=== PATIENT | male | born 1945 | race Caucasian/White ===

== ENCOUNTER 2020-03-31 07:28 | Outpatient (CLI) | payer MEDICARE, SELFPAY ==
[2020-03-31 07:38] LABS: Basophils Absolute Auto 0.01 K/mm3 (0.00-0.10); Basophils Percent Auto 0.2 % (0.0-1.0); Eosinophils Absolute Auto 0.27 K/mm3 (0.02-0.50); Eosinophils Percent Auto 4.3 % (1.0-6.0); Hematocrit 46.6 % (37.0-46.0); Hemoglobin 16.1 g/dL (12.4-15.3); Immature Granulocyte Absolute 0.02 K/mm3 (0.00-0.00); Immature Granulocyte Percent A 0.3 % (0.0-0.0); Lymphocytes Absolute Auto 2.08 K/mm3 (1.10-4.50); Lymphocytes Percent Auto 33.2 % (18.0-42.0); Mean Corpuscular HGB Conc 34.5 g/dL (32.0-36.0); Mean Corpuscular Hemoglobin 36.5 pg (27.0-31.0); Mean Corpuscular Volume 105.7 fL (78.0-102.0); Mean Platelet Volume 9.8 fl (8.7-11.0); Monocytes Absolute Auto 0.68 K/mm3 (0.10-0.90); Monocytes Percent Auto 10.8 % (2.0-11.0); Neutrophils Absolute Auto 3.2 K/mm3 (1.7-7.2); Neutrophils Percent Auto 51.2 % (50.0-70.0); Platelet Count Result 175 K/mm3 (150-420); Red Blood Count 4.41 M/mm3 (4.70-6.10); Red Cell Distribution Width 12.6 % (11.6-14.4); White Blood Count 6.3 K/mm3 (4.8-10.8)
[2020-03-31 07:39] LABS: Add Urine Microscopic? NO; Appearance Urine Clear (Clear); Bilirubin Urine Negative (Negative); Blood Urine Negative (Negative); Color Urine Yellow (Yellow); Glucose Urine UA Negative (Negative); Ketones Urine Negative (Negative); Leukocyte Esterase Ur Negative (Negative); Nitrate Urine Negative (Negative); Protein Urine Negative (Negative); Specific Grav Ur 1.025 (1.010-1.020); Urobilinogen Urine 0.2 mg/dL (0.2-1.0); pH Urine 5.5 (5.0-8.0)
[2020-03-31 07:48] LABS: Hemoglobin A1C 5.2 % (<5.7)
[2020-03-31 09:28] LABS: Alanine Aminotransferase 43 U/L (16-63); Albumin Level 3.4 g/dL (3.4-5.0); Alkaline Phosphatase 57 U/L (46-116); Anion Gap 10.8 mmol/L (7-16); Aspartate Amino Transferase 31 U/L (15-37); Bilirubin,Total 0.6 mg/dL (0.00-1.00); Blood Urea Nitrogen 12 mg/dL (7-18); Calcium 8.7 mg/dL (8.5-10.1); Carbon Dioxide 29 mmol/L (21-32); Chloride 105 mmol/L (98-108); Cholesterol 152 mg/dL (0-200); Estimated Glomerular Filt Rate > 60; Free T3 2.46 pg/mL (2.18-3.98); Free T4 Free Thyroxine 0.87 ng/dL (0.76-1.46); Glucose 102 mg/dL (70-99); HDL Direct 59 mg/dL (40-60); LDL Cholesterol Calculated 85 mg/dL (<130); Magnesium 2.1 mg/dL (1.8-2.4); Osmolality Calculated 289 mOsm/kg (285-295); Potassium 4.8 mmol/L (3.5-5.1); Prostate Specific Antigen 0.4 ng/mL (< OR = 4.0); Sodium 140 mmol/L (136-145); Thyroid Stimulating Hormone 1.41 uIU/mL (0.36-3.74); Total Protein 6.5 g/dL (6.4-8.2); Triglycerides 40 mg/dL (0-150); Vitamin B12 626 pg/mL (193-986)
== END 2020-03-31 07:29 | disposition home or self-care (01) ==
PROVIDERS: PCP Internal Medicine; Visit Provider Internal Medicine
DX: E53.8 Deficiency of other specified B group vitamins (principal); R73.01 Impaired fasting glucose; D75.1 Secondary polycythemia; I10 Essential (primary) hypertension; I49.3 Ventricular premature depolarization; Z12.5 Encounter for screening for malignant neoplasm of prostate
CPT/HCPCS: 36415; 80053; 80061; 81003; 82607; 83036; 83735; 84153; 84439; 84443; 84481; 85025; G0103

== ENCOUNTER 2020-06-09 08:06 | Outpatient (CLI) | payer MEDICARE, SELFPAY ==
[2020-06-10 18:02] LABS: SARS-CoV-2 RNA PCR Negative
== END 2020-06-09 08:07 | disposition home or self-care (01) ==
LOC: CHSLAB 08:08
PROVIDERS: PCP Internal Medicine; Visit Provider Internal Medicine
DX: Z20.828 Contact with and (suspected) exposure to other viral communicable diseases (principal)
CPT/HCPCS: 87635; C9803; U0003

== ENCOUNTER 2020-10-03 07:26 | Outpatient (CLI) | payer MEDICARE, SELFPAY ==
[2020-10-03 07:34] LABS: Basophils Absolute Auto 0.04 K/mm3 (0.00-0.10); Basophils Percent Auto 0.6 % (0.0-1.0); Eosinophils Absolute Auto 0.33 K/mm3 (0.02-0.50); Hematocrit 47.4 % (37.0-46.0); Hemoglobin 15.8 g/dL (12.4-15.3); Immature Granulocyte Absolute 0.01 K/mm3 (0.00-0.00); Immature Granulocyte Percent A 0.2 % (0.0-0.0); Lymphocytes Absolute Auto 2.47 K/mm3 (1.10-4.50); Lymphocytes Percent Auto 37.3 % (18.0-42.0); Mean Corpuscular HGB Conc 33.3 g/dL (32.0-36.0); Mean Corpuscular Hemoglobin 35.6 pg (27.0-31.0); Mean Corpuscular Volume 106.8 fL (78.0-102.0); Mean Platelet Volume 9.8 fl (8.7-11.0); Monocytes Absolute Auto 0.66 K/mm3 (0.10-0.90); Neutrophils Absolute Auto 3.1 K/mm3 (1.7-7.2); Neutrophils Percent Auto 46.9 % (50.0-70.0); Platelet Count Result 191 K/mm3 (150-420); Red Blood Count 4.44 M/mm3 (4.70-6.10); Red Cell Distribution Width 12.1 % (11.6-14.4); White Blood Count 6.6 K/mm3 (4.8-10.8)
[2020-10-03 07:38] LABS: Add Urine Microscopic? NO; Appearance Urine Clear (Clear); Bilirubin Urine Negative (Negative); Blood Urine Negative (Negative); Color Urine Yellow (Yellow); Glucose Urine UA Negative (Negative); Ketones Urine Negative (Negative); Leukocyte Esterase Ur Negative (Negative); Nitrate Urine Negative (Negative); Protein Urine Negative (Negative); Specific Grav Ur 1.025 (1.010-1.020); Urobilinogen Urine 0.2 mg/dL (0.2-1.0); pH Urine 5.5 (5.0-8.0)
[2020-10-03 07:48] LABS: Hemoglobin A1C 5.2 % (<5.7)
[2020-10-03 09:13] LABS: Alanine Aminotransferase 50 U/L (16-63); Albumin Level 3.6 g/dL (3.4-5.0); Alkaline Phosphatase 53 U/L (46-116); Anion Gap 6 mmol/L (8-16); Aspartate Amino Transferase 25 U/L (15-37); Bilirubin,Total 0.6 mg/dL (0.00-1.00); Blood Urea Nitrogen 12 mg/dL (7-18); Calcium 8.8 mg/dL (8.5-10.1); Carbon Dioxide 30 mmol/L (21-32); Chloride 104 mmol/L (98-108); Cholesterol 147 mg/dL (0-200); Creatine Kinase 47 U/L (39-308); Estimated Glomerular Filt Rate 60; Ferritin 458 ng/mL (26-388); Free T3 2.44 pg/mL (2.18-3.98); Free T4 Free Thyroxine 0.88 ng/dL (0.76-1.46); Glucose 100 mg/dL (70-99); HDL Direct 55 mg/dL (40-60); Iron 134 ug/dL (65-175); LDL Cholesterol Calculated 80 mg/dL (<130); Osmolality Calculated 289 mOsm/kg (285-295); Percent Iron Saturation 53 % (12-57); Potassium 5.1 mmol/L (3.5-5.1); Sodium 140 mmol/L (136-145); Thyroid Stimulating Hormone 1.32 uIU/mL (0.36-3.74); Total Protein 6.7 g/dL (6.4-8.2); Triglycerides 60 mg/dL (0-150); Vitamin B12 638 pg/mL (193-986)
== END 2020-10-03 07:27 | disposition home or self-care (01) ==
LOC: CHSLAB 07:27
PROVIDERS: PCP Internal Medicine; Visit Provider Internal Medicine
DX: E53.8 Deficiency of other specified B group vitamins (principal); I10 Essential (primary) hypertension; E78.2 Mixed hyperlipidemia; R73.01 Impaired fasting glucose; D75.1 Secondary polycythemia; I49.3 Ventricular premature depolarization
CPT/HCPCS: 36415; 80053; 80061; 81003; 82550; 82607; 82728; 83036; 83540; 83550; 84439; 84443; 84481; 85025

== ENCOUNTER 2020-10-19 09:48 | Outpatient (CLI) | payer MEDICARE, SELFPAY ==
[2020-10-19 10:49] LABS: SARS-CoV-2 Ag Negative (Negative)
[2020-10-20 01:27] LABS: SARS-CoV-2 RNA PCR Negative
== END 2020-10-19 09:49 | disposition home or self-care (01) ==
LOC: CHSLAB 09:50
PROVIDERS: PCP Internal Medicine; Visit Provider Internal Medicine
DX: Z20.822 Contact with and (suspected) exposure to COVID-19 (principal)
CPT/HCPCS: 87426; C9803; U0003; U0005

== ENCOUNTER 2020-11-13 09:17 | Outpatient (CLI) | payer MEDICARE, SELFPAY | END 2020-11-13 09:18 | disposition home or self-care (01) | LOC: CHSCARD 09:18 | PROVIDERS: PCP Internal Medicine; Visit Provider Internal Medicine Cardiovascular Disease | DX: I49.3 Ventricular premature depolarization (principal) | CPT/HCPCS: 93225; 93226 ==

== ENCOUNTER 2021-09-04 09:00 | Outpatient (CLI) | payer MEDICARE, SELFPAY | END 2021-09-04 09:01 | disposition home or self-care (01) | LOC: CHSOUTPT 09:22 | PROVIDERS: PCP Internal Medicine; Visit Provider Specialist | DX: C44.329 Squamous cell carcinoma of skin of other parts of face (principal) | CPT/HCPCS: 88305 ==

== ENCOUNTER 2021-10-09 07:24 | Outpatient (CLI) | payer MEDICARE, SELFPAY ==
[2021-10-09 07:44] LABS: Basophils Absolute Auto 0.04 K/mm3 (0.00-0.10); Basophils Percent Auto 0.6 % (0.0-1.0); Eosinophils Absolute Auto 0.26 K/mm3 (0.02-0.50); Eosinophils Percent Auto 4.1 % (1.0-6.0); Hematocrit 48.1 % (37.0-46.0); Immature Granulocyte Absolute 0.03 K/mm3 (0.00-0.00); Immature Granulocyte Percent A 0.5 % (0.0-0.0); Lymphocytes Absolute Auto 2.02 K/mm3 (1.10-4.50); Lymphocytes Percent Auto 31.6 % (18.0-42.0); Mean Corpuscular HGB Conc 33.3 g/dL (32.0-36.0); Mean Corpuscular Hemoglobin 36.6 pg (27.0-31.0); Mean Corpuscular Volume 110.1 fL (78.0-102.0); Mean Platelet Volume 10.4 fl (8.7-11.0); Monocytes Absolute Auto 0.78 K/mm3 (0.10-0.90); Monocytes Percent Auto 12.2 % (2.0-11.0); Neutrophils Absolute Auto 3.3 K/mm3 (1.7-7.2); Platelet Count Result 187 K/mm3 (150-420); Red Blood Count 4.37 M/mm3 (4.70-6.10); Red Cell Distribution Width 12.1 % (11.6-14.4); White Blood Count 6.4 K/mm3 (4.8-10.8)
[2021-10-09 07:46] LABS: Add Urine Microscopic? NO; Appearance Urine Clear (Clear); Bilirubin Urine Negative (Negative); Blood Urine Negative (Negative); Color Urine Yellow (Yellow); Glucose Urine UA Negative (Negative); Ketones Urine Negative (Negative); Leukocyte Esterase Ur Negative (Negative); Nitrate Urine Negative (Negative); Protein Urine Negative (Negative); Urobilinogen Urine 0.2 mg/dL (0.2-1.0); pH Urine 5.5 (5.0-8.0)
[2021-10-09 08:12] LABS: Hemoglobin A1C 5.3 % (<5.7)
[2021-10-09 09:13] LABS: Alanine Aminotransferase 56 U/L (16-63); Albumin Level 3.5 g/dL (3.4-5.0); Alkaline Phosphatase 61 U/L (46-116); Anion Gap 6 mmol/L (8-16); Aspartate Amino Transferase 50 U/L (15-37); Bilirubin,Total 0.6 mg/dL (0.00-1.00); Blood Urea Nitrogen 10 mg/dL (7-18); Calcium 8.7 mg/dL (8.5-10.1); Carbon Dioxide 31 mmol/L (21-32); Chloride 104 mmol/L (98-108); Cholesterol 146 mg/dL (0-200); Creatine Kinase 49 U/L (39-308); Estimated Glomerular Filt Rate > 60; Ferritin 556 ng/mL (26-388); Glucose 106 mg/dL (70-99); HDL Direct 63 mg/dL (40-60); Iron 125 ug/dL (65-175); LDL Cholesterol Calculated 74 mg/dL (<130); Osmolality Calculated 291 mOsm/kg (285-295); Percent Iron Saturation 51 % (12-57); Prostate Specific Antigen 0.4 ng/mL (< OR = 4.0); Sodium 141 mmol/L (136-145); Total Protein 6.7 g/dL (6.4-8.2); Triglycerides 43 mg/dL (0-150)
== END 2021-10-09 07:25 | disposition home or self-care (01) ==
LOC: CHSLAB 07:26
PROVIDERS: PCP Internal Medicine; Visit Provider Internal Medicine
DX: E78.2 Mixed hyperlipidemia (principal); I10 Essential (primary) hypertension; R73.01 Impaired fasting glucose; D75.1 Secondary polycythemia; Z12.5 Encounter for screening for malignant neoplasm of prostate; D64.9 Anemia, unspecified
CPT/HCPCS: 36415; 80053; 80061; 81003; 82550; 82728; 83036; 83540; 83550; 84153; 85025; G0103

== ENCOUNTER 2021-10-22 09:26 | Outpatient (CLI) | payer MEDICARE, SELFPAY | END 2021-10-22 09:27 | disposition home or self-care (01) | LOC: CHSLAB 09:28 | PROVIDERS: PCP Internal Medicine; Visit Provider Internal Medicine | DX: D75.1 Secondary polycythemia (principal); R94.5 Abnormal results of liver function studies; E83.10 Disorder of iron metabolism, unspecified | CPT/HCPCS: 36415; 81256 ==

== ENCOUNTER 2022-03-05 10:30 | Outpatient (CLI) | payer MEDICARE, SELFPAY ==
--- NOTE | ~2022-03-05 | CT_ITS ---
EXAMINATION: CT abdomen pelvis wo con DATE: 03/05/2022 15:03 INDICATION: Diarrhea. Left lower quadrant tenderness. TECHNIQUE: Computed tomography (CT) of the abdomen and pelvis was performed without intravenous contr ast. The dose-length product was 1136.90 mGy-cm. Automated exposure control and iterative reconstruct ion technique were employed. COMPARISON: CT dated 03/15/2008. FINDINGS: There are reticulonodular densities in the lung bases bilaterally. No pneumothorax. No sign ificant pleural or pericardial effusion. There is an irregular liver surface, suspicious for cirrhosi s. Heart size normal. Spleen is normal. There are fat-containing bilateral inguinal hernias. Colonic diverticulosis without evidence for diverticulitis. Normal appendix. There are bilateral fat-containi ng inguinal hernias. No lymphadenopathy. Subtle mesenteric fatty infiltration, nonspecific. There are a few shotty mesenteric lymph nodes. Mild osteoarthritis of the hips. Severe lumbar spondylosis with grade 1 spondylolisthesis at L5-S1 secondary to spondylolysis. There is scoliosis. Bladder is decomp ressed limiting evaluation for wall thickening. No evidence for bowel obstruction. Small fat-containi ng umbilical hernia. IMPRESSION: 1. Reticulonodular densities of the lung bases bilaterally, suspicious for infectious/inflammatory pr ocess. 2: Irregular liver surface, suspicious for cirrhosis. 3: Fat-containing bilateral inguinal and umbilical hernias. Reviewed, dictated and finalized at location B. IMPRESSION: 1. Reticulonodular densities of the lung bases bilaterally, suspicious for infe ctious/inflammatory process. 2: Irregular liver surface, suspicious for cirrhosis. 3: Fat-containing bilateral inguinal and umbilical hernias.
[2022-03-05 14:06] LABS: Basophils Absolute Auto 0.02 K/mm3 (0.00-0.10); Basophils Percent Auto 0.3 % (0.0-1.0); Eosinophils Absolute Auto 0.18 K/mm3 (0.02-0.50); Eosinophils Percent Auto 2.7 % (1.0-6.0); Hematocrit 45.1 % (37.0-46.0); Hemoglobin 15.4 g/dL (12.4-15.3); Immature Granulocyte Absolute 0.02 K/mm3 (0.00-0.00); Immature Granulocyte Percent A 0.3 % (0.0-0.0); Immature Reticulocyte Fraction 9.6 % (2.0-16.52); Lymphocytes Absolute Auto 2.17 K/mm3 (1.10-4.50); Lymphocytes Percent Auto 32.1 % (18.0-42.0); Mean Corpuscular HGB Conc 34.1 g/dL (32.0-36.0); Mean Corpuscular Hemoglobin 36.7 pg (27.0-31.0); Mean Corpuscular Volume 107.4 fL (78.0-102.0); Mean Platelet Volume 10.4 fl (8.7-11.0); Monocytes Absolute Auto 0.71 K/mm3 (0.10-0.90); Monocytes Percent Auto 10.5 % (2.0-11.0); Neutrophils Absolute Auto 3.7 K/mm3 (1.7-7.2); Neutrophils Percent Auto 54.1 % (50.0-70.0); Platelet Count Result 186 K/mm3 (150-420); Red Cell Distribution Width 12.4 % (11.6-14.4); Reticulocyte Percent 1.59 % (0.50-1.50); Reticulocytes Absolute 0.07 M/mm3 (0.02-0.1); White Blood Count 6.8 K/mm3 (4.8-10.8)
[2022-03-05 14:21] LABS: Estimated Glomerular Filt Rate > 60
[2022-03-05 14:37] LABS: Alanine Aminotransferase 43 U/L (16-63); Albumin Level 3.3 g/dL (3.4-5.0); Alkaline Phosphatase 54 U/L (46-116); Anion Gap 3 mmol/L (8-16); Aspartate Amino Transferase 34 U/L (15-37); Bilirubin,Total 0.8 mg/dL (0.00-1.00); Blood Urea Nitrogen 8 mg/dL (7-18); Calcium 8.6 mg/dL (8.5-10.1); Carbon Dioxide 32 mmol/L (21-32); Chloride 103 mmol/L (98-108); Ferritin 485 ng/mL (26-388); Glucose 99 mg/dL (70-99); Iron 151 ug/dL (65-175); Osmolality Calculated 284 mOsm/kg (285-295); Sodium 138 mmol/L (136-145); Total Protein 6.7 g/dL (6.4-8.2)
[2022-03-05 14:50] LABS: Potassium 5.2 mmol/L (3.5-5.1)
[2022-03-05 15:08] LABS: Erythrocyte Sedimentation Rate 12 mm/hr (0-20)
[2022-03-05 18:35] LABS: Amylase 57 U/L (25-115); GGT 74 U/L (15-85); Lipase 42 U/L (73-393)
== END 2022-03-05 10:31 | disposition home or self-care (01) ==
PROVIDERS: PCP Internal Medicine; Visit Provider Specialist
DX: R19.7 Diarrhea, unspecified (principal); R10.32 Left lower quadrant pain; D64.9 Anemia, unspecified; K76.9 Liver disease, unspecified
CPT/HCPCS: 36415; 74176; 80053; 82150; 82728; 82977; 83540; 83690; 85025; 85046; 85652; 88305

== ENCOUNTER 2022-03-06 17:08 | Outpatient (CLI) | payer MEDICARE, SELFPAY ==
[2022-03-06 17:40] LABS: Partial Thromboplastin Time 25.4 SEC (23.90-30.70); Prothrombin Time 10.7 Seconds (9.50-12.10)
[2022-03-06 18:03] LABS: Occult Blood Negative (Negative)
[2022-03-09 21:12] LABS: Fecal Fat, Ql Normal (Normal)
== END 2022-03-06 17:09 | disposition home or self-care (01) ==
LOC: CHSLAB 17:10
PROVIDERS: PCP Internal Medicine; Visit Provider Internal Medicine
DX: D64.9 Anemia, unspecified (principal); K76.9 Liver disease, unspecified
CPT/HCPCS: 36415; 82272; 82705; 85610; 85730; 87045; 87177; 87209; 87324; 87427

== ENCOUNTER 2022-03-25 14:46 | Outpatient (CLI) | payer MEDICARE, SELFPAY ==
[2022-03-25 15:11] LABS: Hematocrit 44.3 % (37.0-46.0); Hemoglobin 15.4 g/dL (12.4-15.3); Mean Corpuscular HGB Conc 34.8 g/dL (32.0-36.0); Mean Corpuscular Hemoglobin 37.2 pg (27.0-31.0); Mean Platelet Volume 10.3 fl (8.7-11.0); Platelet Count Result 196 K/mm3 (150-420); Red Blood Count 4.14 M/mm3 (4.70-6.10); Red Cell Distribution Width 12.3 % (11.6-14.4); White Blood Count 7.1 K/mm3 (4.8-10.8)
[2022-03-25 15:47] LABS: Alanine Aminotransferase 35 U/L (16-63); Albumin Level 3.5 g/dL (3.4-5.0); Alkaline Phosphatase 58 U/L (46-116); Anion Gap 8 mmol/L (8-16); Aspartate Amino Transferase 30 U/L (15-37); Bilirubin,Total 0.9 mg/dL (0.00-1.00); Blood Urea Nitrogen 9 mg/dL (7-18); Calcium 8.5 mg/dL (8.5-10.1); Carbon Dioxide 27 mmol/L (21-32); Chloride 104 mmol/L (98-108); Estimated Glomerular Filt Rate > 60; Glucose 87 mg/dL (70-99); Osmolality Calculated 285 mOsm/kg (285-295); Potassium 4.2 mmol/L (3.5-5.1); Sodium 139 mmol/L (136-145); Total Protein 6.5 g/dL (6.4-8.2)
[2022-03-25 16:38] LABS: CRP < 0.2 mg/dL (0.0-0.9)
[2022-03-28 22:13] LABS: Immunoglobulin A 185 mg/dL (70-320)
[2022-03-31 14:16] LABS: Tissue Transglutaminase IgA Ab <1.0 U/mL (<15.0)
== END 2022-03-25 14:47 | disposition home or self-care (01) ==
LOC: CHSLAB 14:49
PROVIDERS: PCP Internal Medicine
DX: K52.9 Noninfective gastroenteritis and colitis, unspecified (principal)
CPT/HCPCS: 36415; 80053; 82784; 83516; 85027; 86140

== ENCOUNTER 2022-03-26 07:41 | Outpatient (CLI) | payer MEDICARE, SELFPAY | END 2022-03-26 07:42 | disposition home or self-care (01) | LOC: CHSLAB 07:46 | PROVIDERS: PCP Internal Medicine | DX: K52.9 Noninfective gastroenteritis and colitis, unspecified (principal) | CPT/HCPCS: 87045; 87177; 87209; 87324; 87427 ==

== ENCOUNTER 2022-03-28 07:51 | Outpatient (CLI) | payer MEDICARE, SELFPAY ==
--- NOTE | ~2022-03-28 | US_ITS ---
US abdomen complete DATE: 03/28/2022 08:32 INDICATION: Chronic diarrhea TECHNIQUE: Real-time imaging of the abdomen, Doppler analysis COMPARISON: 03/05/[address] abdomen pelvis FINDINGS: There is somewhat coarsened echotexture which in combination with surface nodularity on CT examination may indicate cirrhosis. No discrete hepatic mass lesion is detected. There is normal hepa topedal portal venous flow direction. No gallstones or gallbladder wall thickening are detected. Negative sonographic Brooks's sign. The common bile duct measures 3.9 mm, normal. The pancreas is largely obscured by bowel gas. Right kidney measures approximately 11 cm length, left kidney 12 cm length. No renal mass lesion or h ydronephrosis is detected. Splenic size is within normal limits. Normal caliber of the abdominal aorta. The inferior vena cava is unremarkable. IMPRESSION: Coarsened hepatic echotexture, suggestive of cirrhosis Negative gallbladder Reviewed, dictated and finalized at Location A. Reviewed, dictated and finalized at location B.
== END 2022-03-28 07:52 | disposition home or self-care (01) ==
PROVIDERS: PCP Internal Medicine
DX: K52.9 Noninfective gastroenteritis and colitis, unspecified (principal)
CPT/HCPCS: 76700

== ENCOUNTER 2022-07-01 15:38 | Outpatient (CLI) | payer MEDICARE, SELFPAY ==
[2022-07-01 15:59] LABS: Hemoglobin 15.5 g/dL (12.4-15.3); Mean Corpuscular HGB Conc 34.4 g/dL (32.0-36.0); Mean Corpuscular Hemoglobin 37.2 pg (27.0-31.0); Mean Corpuscular Volume 107.9 fL (78.0-102.0); Mean Platelet Volume 9.1 fl (8.7-11.0); Platelet Count Result 166 K/mm3 (150-420); Red Blood Count 4.17 M/mm3 (4.70-6.10); White Blood Count 8.1 K/mm3 (4.8-10.8)
[2022-07-01 16:18] LABS: Alanine Aminotransferase 40 U/L (16-63); Albumin Level 3.4 g/dL (3.4-5.0); Alkaline Phosphatase 50 U/L (46-116); Anion Gap 8 mmol/L (8-16); Aspartate Amino Transferase 25 U/L (15-37); Bilirubin,Total 0.7 mg/dL (0.00-1.00); Blood Urea Nitrogen 9 mg/dL (7-18); Calcium 8.5 mg/dL (8.5-10.1); Carbon Dioxide 29 mmol/L (21-32); Chloride 105 mmol/L (98-108); Estimated Glomerular Filt Rate > 60; Glucose 84 mg/dL (70-99); Osmolality Calculated 291 mOsm/kg (285-295); Potassium 4.4 mmol/L (3.5-5.1); Sodium 142 mmol/L (136-145); Total Protein 6.7 g/dL (6.4-8.2)
[2022-07-03 11:50] LABS: Immunoglobulin G, Serum 1047 mg/dL (600-1540); Immunoglobulin G1 582 mg/dL (382-929); Immunoglobulin G2 344 mg/dL (241-700); Immunoglobulin G3 42 mg/dL (22-178); Immunoglobulin G4 25.4 mg/dL (4.0-86.0)
[2022-07-03 12:26] LABS: Actin Antibody (IgG) <20 U (<20)
[2022-07-03 22:33] LABS: Mitochondrial (M2) Ab (IgG) <=20.0 U (<=20.0)
[2022-07-04 03:24] LABS: Hepatitis B Core Ab Total Nonreactive (Nonreactive)
[2022-07-04 11:19] LABS: Hepatitis B Surface Antibody Nonreactive (Nonreactive); Hepatitis B Surface Antigen Nonreactive (Nonreactive); Hepatitis C Signal to Cutoff 0.02 ratio (<1.00); Hepatitis C Virus Antibody Nonreactive (Nonreactive)
[2022-07-08 00:18] LABS: ALT 30 U/L (9-46); Alpha-2-Macroglobulin 277 mg/dL (106-279); Apolipoprotein A1 155 mg/dL (94-176); Fibrosis Score 0.67; Fibrosis Stage F3; GGT 49 U/L (3-70); Haptoglobin 121 mg/dL (43-212); Necroinflammat Act Grade A0-A1; Total Bilirubin 0.8 mg/dL (0.2-1.2)
== END 2022-07-01 15:39 | disposition home or self-care (01) ==
PROVIDERS: PCP Internal Medicine; Visit Provider Internal Medicine
DX: K71.7 Toxic liver disease with fibrosis and cirrhosis of liver (principal); N18.6 End stage renal disease; Z11.59 Encounter for screening for other viral diseases
CPT/HCPCS: 36415; 80053; 81596; 82784; 82787; 83516; 83520; 85027; 86038; 86704; 86706

== ENCOUNTER 2023-02-27 10:54 | Outpatient (CLI) | payer MEDICARE, SELFPAY ==
--- NOTE | ~2023-02-27 | XR_ITS ---
EXAMINATION: XR ribs LT 2V w CXR 2V INDICATION: Cough and rib pain TECHNIQUE: Frontal and lateral views of the chest and 3 views of the left ribs were obtained. COMPARISON: 12/22/2017 FINDINGS: There are airspace opacities of the lower lobes and right middle lobe. No pleural effusion or pneumothorax. The cardiomediastinal silhouette is normal. No displaced rib fracture is identified. There is mild wedging at the left lateral aspect of the T10 vertebral body. Lumbar dextroscoliosis i s noted. IMPRESSION: 1. Airspace opacities of the lower lobes and right middle lobe, consistent with atelectasis versus pn eumonia. 2. No displaced rib fracture identified. Reviewed, dictated and finalized at location L. IMPRESSION: 1. Airspace opacities of the lower lobes and right middle lobe, consistent with atelectasis versus pneumonia. 2. No displaced rib fracture identified.
[2023-02-27 15:13] LABS: Basophils Absolute Auto 0.04 K/mm3 (0.00-0.10); Basophils Percent Auto 0.5 % (0.0-1.0); Eosinophils Absolute Auto 0.16 K/mm3 (0.02-0.50); Eosinophils Percent Auto 1.8 % (1.0-6.0); Hematocrit 46.7 % (37.0-46.0); Hemoglobin 15.3 g/dL (12.4-15.3); Immature Granulocyte Absolute 0.03 K/mm3 (0.00-0.00); Immature Granulocyte Percent A 0.3 % (0.0-0.0); Lymphocytes Absolute Auto 1.86 K/mm3 (1.10-4.50); Lymphocytes Percent Auto 21.5 % (18.0-42.0); Mean Corpuscular HGB Conc 32.8 g/dL (32.0-36.0); Mean Corpuscular Hemoglobin 34.9 pg (27.0-31.0); Mean Corpuscular Volume 106.6 fL (78.0-102.0); Mean Platelet Volume 9.5 fl (8.7-11.0); Monocytes Absolute Auto 0.75 K/mm3 (0.10-0.90); Monocytes Percent Auto 8.7 % (2.0-11.0); Neutrophils Absolute Auto 5.8 K/mm3 (1.7-7.2); Neutrophils Percent Auto 67.2 % (50.0-70.0); Platelet Count Result 215 K/mm3 (150-420); Red Blood Count 4.38 M/mm3 (4.70-6.10); Red Cell Distribution Width 12.4 % (11.6-14.4); White Blood Count 8.7 K/mm3 (4.8-10.8)
[2023-02-27 15:42] LABS: Alanine Aminotransferase 34 U/L (16-63); Albumin Level 3.4 g/dL (3.4-5.0); Alkaline Phosphatase 69 U/L (46-116); Anion Gap 7 mmol/L (8-16); Aspartate Amino Transferase 23 U/L (15-37); Bilirubin,Total 0.7 mg/dL (0.00-1.00); Blood Urea Nitrogen 10 mg/dL (7-18); Calcium 8.8 mg/dL (8.5-10.1); Carbon Dioxide 29 mmol/L (21-32); Chloride 103 mmol/L (98-108); Estimated Glomerular Filt Rate > 60; Glucose 75 mg/dL (70-99); Osmolality Calculated 286 mOsm/kg (285-295); Potassium 4.3 mmol/L (3.5-5.1); Sodium 139 mmol/L (136-145)
== END 2023-02-27 10:55 | disposition home or self-care (01) ==
PROVIDERS: PCP Internal Medicine; Visit Provider Internal Medicine
DX: R05.9 Cough, unspecified (principal); R07.81 Pleurodynia; R91.8 Other nonspecific abnormal finding of lung field
CPT/HCPCS: 36415; 71046; 71100; 80053; 85025; 87040; 87147; 87186

== ENCOUNTER 2023-03-05 10:02 | Outpatient (CLI) | payer MEDICARE, SELFPAY ==
--- NOTE | ~2023-03-05 | XR_ITS ---
Clinical Indication: Pneumonia PA and lateral views of the chest: Comparison: 02/27/2023 Findings: There are persistent hazy bibasilar pulmonary airspace opacities. No pleural effusion or pn eumothorax. Cardiomediastinal silhouette is within normal limits. Bones and soft tissues are unremar kable. Impression: Persistent bibasilar hazy airspace opacities, suspicious for pneumonia versus possibly atelectasis. C orrelate clinically. Reviewed, dictated and finalized at location . Impression: Persistent bibasilar hazy airspace opacities, suspicious for pneumonia versus p ossibly atelectasis. Correlate clinically.
== END 2023-03-05 10:03 | disposition home or self-care (01) ==
LOC: CHSIMG 10:04
PROVIDERS: PCP Internal Medicine; Visit Provider Internal Medicine
DX: J18.9 Pneumonia, unspecified organism (principal); R91.8 Other nonspecific abnormal finding of lung field
CPT/HCPCS: 71046

== ENCOUNTER → 2023-03-21 07:55 | Outpatient (CLI) | payer MEDICARE, SELFPAY ==
--- NOTE | ~2023-03-21 | MR_ITS ---
MRI of the thoracic spine Clinical History: Back pain Technique: Axial T2-weighted and gradient images, and sagittal T1-weighted, T2-weighted, and STIR jane ges were acquired. Findings: There is diffuse marrow edema of the T9 vertebral body with probable linear hypointense fra cture line, and associated mild loss of height. There is diffuse, marked T1 hypointense signal throug hout most of the T9 vertebral body. Abnormal signal extends into the left pedicle/lamina. There is minimal chronic loss of height of T3. Remaining osseous structures are intact. Intervertebral disc spaces are relatively well preserved throughout the thoracic spine. No disc bulge or herniation identified in the thoracic spine. No epidural mass or collection. No spinal canal sten osis or cord compression. Paravertebral soft tissues are unremarkable. Impression: Mild compression fracture of T9 with extensive abnormal signal, as detailed above. Imaging findings a re somewhat equivocal, but I would favor a benign osteoporotic fracture over malignant fracture, crain oren the latter is difficult to completely exclude. Consider short-term follow-up exam in several week s to assess for resolution of the abnormal marrow signal. Minimal chronic loss of height of T3. Reviewed, dictated and finalized at location M. Impression: Mild compression fracture of T9 with extensive abnormal signal, as detailed abo ve. Imaging findings are somewhat equivocal, but I would favor a benign osteopo rotic fracture over malignant fracture, however the latter is difficult to comp letely exclude. Consider short-term follow-up exam in several weeks to assess f or resolution of the abnormal marrow signal. Minimal chronic loss of height of T3.
== END ==
PROVIDERS: PCP Internal Medicine; Visit Provider Pain Medicine Pain Medicine
DX: M80.08XA Age-related osteoporosis with current pathological fracture, vertebra(e), initial encounter for fracture (principal)
CPT/HCPCS: 72146

== ENCOUNTER 2023-03-24 07:40 | Outpatient (CLI) | payer MEDICARE, SELFPAY ==
--- NOTE | 2023-03-24 08:15 | ECHO_ITS ---
Patient Info Name: Christopher Hogue Age: 77 years : 1945 Gender: Male Ht: 68 in Wt: 212 lbs BSA: 2.18 m2 HR: 77 bpm BP: 128 / 85 mmHg Heart Rhythm: Sinus Rhythm Technical Quality: Fair Exam Date: 03/24/2023 8:13 AM Exam Location: [facility] Patient Status: Outpatient Admit Date: 03/24/2023 Staff Ordering Physician: Lianne Dinero MD [employer] Machine Operator: Nia Arzola RDCS Attending Provider: Lianne Dinero MD Referring Physician: Bar WILHELM; Exam Type: CA echo doppler color flow Study Info Indications - CHF Complete two-dimensional, color flow and Doppler transthoracic echocardiogram is performed. Summary 1. Complete two-dimensional, color flow and Doppler transthoracic echocardiogram is performed. 2. Left ventricular chamber dimension is normal. 3. Left ventricular systolic function is normal, estimated at 60-65%. 4. The left ventricular diastolic function is grade I diastolic dysfunction. 5. E/e' 8 is minimally elevated. 6. No pulmonary hypertension, estimated pulmonary arterial systolic pressure is 11 mmHg. 7. There is trace pulmonic regurgitation. Left Ventricle E/e' 8 is minimally elevated. Left ventricular chamber dimension is normal. Left ventricular systolic function is normal, estimated at 60-65%. The left ventricular diastolic function is grade I diastolic dysfunction. Right Ventricle Right ventricular systolic function is normal and with normal TAPSE 2.0 cm. Right ventricular chamber dimension is normal. Left Atria Left atrial chamber dimension is normal. Right Atria Right atrial chamber dimension is normal. Aortic Valve The aortic valve is trileaflet. There is no aortic valve stenosis. There is no aortic valve regurgitation. Pulmonic Valve There is trace pulmonic regurgitation. Mitral Valve There is no mitral valve stenosis. There is no mitral valve regurgitation. Tricuspid Valve There is no tricuspid valve regurgitation. No pulmonary hypertension, estimated pulmonary arterial systolic pressure is 11 mmHg. Pericardium/Pleural There is no pericardial effusion. Inferior Vena Cava Normal inferior vena cava with >50% collapse upon inspiration consistent with normal right atrial pressure, 5 mmHg. Aorta The aortic root size at the sinus of Valsalva is normal. Left Ventricular Outflow Tract Name Value Normal LVOT 2D LVOT Diameter 2.2 cm LVOT Doppler LVOT Peak Velocity 78 cm/s LVOT Peak Gradient 2 mmHg LVOT Mean Gradient 1 mmHg LVOT VTI 18 cm LVOT VTI/AV VTI Ratio 0.9 LVOT Stroke Volume 70 ml Pulmonic Valve Name Value Normal RVOT Doppler RVOT Peak Gradient 1 mmHg PV Doppler PV Peak Velocity 71 cm/s PV P
[2023-03-24 08:21] LABS: Basophils Absolute Auto 0.03 K/mm3 (0.00-0.10); Basophils Percent Auto 0.3 % (0.0-1.0); Eosinophils Absolute Auto 0.14 K/mm3 (0.02-0.50); Eosinophils Percent Auto 1.6 % (1.0-6.0); Hematocrit 45.6 % (37.0-46.0); Hemoglobin 15.3 g/dL (12.4-15.3); Immature Granulocyte Absolute 0.04 K/mm3 (0.00-0.00); Immature Granulocyte Percent A 0.5 % (0.0-0.0); Lymphocytes Absolute Auto 1.86 K/mm3 (1.10-4.50); Lymphocytes Percent Auto 21.3 % (18.0-42.0); Mean Corpuscular HGB Conc 33.6 g/dL (32.0-36.0); Mean Corpuscular Hemoglobin 35.3 pg (27.0-31.0); Mean Corpuscular Volume 105.1 fL (78.0-102.0); Mean Platelet Volume 9.6 fl (8.7-11.0); Monocytes Absolute Auto 0.68 K/mm3 (0.10-0.90); Monocytes Percent Auto 7.8 % (2.0-11.0); Neutrophils Percent Auto 68.5 % (50.0-70.0); Platelet Count Result 215 K/mm3 (150-420); Red Blood Count 4.34 M/mm3 (4.70-6.10); White Blood Count 8.7 K/mm3 (4.8-10.8)
[2023-03-24 08:32] LABS: Hemoglobin A1C 5.4 % (<5.7)
[2023-03-24 08:54] LABS: Alanine Aminotransferase 55 U/L (16-63); Albumin Level 3.4 g/dL (3.4-5.0); Alkaline Phosphatase 97 U/L (46-116); Anion Gap 4 mmol/L (8-16); Aspartate Amino Transferase 40 U/L (15-37); Bilirubin,Total 0.3 mg/dL (0.00-1.00); Blood Urea Nitrogen 11 mg/dL (7-18); Calcium 8.7 mg/dL (8.5-10.1); Carbon Dioxide 30 mmol/L (21-32); Chloride 104 mmol/L (98-108); Cholesterol 150 mg/dL (0-200); Estimated Glomerular Filt Rate > 60; Glucose 112 mg/dL (70-99); HDL Direct 49 mg/dL (40-60); LDL Cholesterol Calculated 92 mg/dL (<130); Osmolality Calculated 286 mOsm/kg (285-295); Potassium 4.7 mmol/L (3.5-5.1); Sodium 138 mmol/L (136-145); Total Protein 6.7 g/dL (6.4-8.2); Triglycerides 43 mg/dL (0-150)
[2023-03-24 10:31] LABS: Appearance Urine Clear (Clear); Bilirubin Urine Negative (Negative); Blood Urine Trace-Intact (Negative); Color Urine Yellow (Yellow); Glucose Urine UA Negative (Negative); Ketones Urine Trace (Negative); Leukocyte Esterase Ur Negative (Negative); Nitrate Urine Negative (Negative); Protein Urine Trace (Negative); Specific Grav Ur 1.025 (1.010-1.020); Urobilinogen Urine 0.2 mg/dL (0.2-1.0); pH Urine 5.5 (5.0-8.0)
[2023-03-24 10:38] LABS: Add Urine Microscopic? YES; Calcium Oxalate Crystals Urine Present /hpf; RBC Urine 0-2 /hpf (0-2); Squamous Epithelial Cell Urine Rare /hpf (Few); WBC Urine None seen /hpf (0-3)
[2023-03-24 10:39] LABS: Bacteria Urine Trace /hpf
== END 2023-03-24 07:41 | disposition home or self-care (01) ==
LOC: CHSIMG 07:43
PROVIDERS: PCP Internal Medicine; Visit Provider Internal Medicine
DX: K76.0 Fatty (change of) liver, not elsewhere classified (principal); E53.8 Deficiency of other specified B group vitamins; K74.60 Unspecified cirrhosis of liver; I10 Essential (primary) hypertension; E78.2 Mixed hyperlipidemia; R73.01 Impaired fasting glucose
CPT/HCPCS: 36415; 80053; 80061; 81001; 83036; 85025; 93306

== ENCOUNTER 2023-04-07 09:14 | Outpatient (RCR) | payer MEDICARE, SELFPAY ==
--- NOTE | 2023-04-07 09:52 | PTOPEVAL1 ---
Assessment and note entered by Jonathan Carbajal Evaluation Information Assessment Status Evaluation Diagnosis vertebral fx, back pain, s/p kyphoplasty Onset 01/27/23 Subjective Information Pt. reports that he has long hx of back pain. He states that he found several fx in his spine after visiting with the doctor. He recalls no specfic injury. He underwent kyphoplasty 03/26/23. He continues to describe pain across the low back. He reports that he continues to have pain with long periods of standing and long periods of sitting. He states that back pain can wake him at night occasionally. He reports that he enjoys caring for his yard, but has been unable to do so, do to pain. He reports that he can currently stand about 15 minutes, but was able to stand much longer several months ago. He reports that he still drives. He is not using an AD. He states that his goal is to return to taking care of his yard. Reported Pain Level Pain Score 4: Self Report Assessment PT Clinical Summary Pt. is a 77 year old male who enters the clinic with weakness and back pain following kyphoplasty. He presents with impaired gait, impaired trunk mobility, impaired strength, impaired flexiblity and functional decline. Continued skilled PT is indicated in order to improve these areas to allow the pt. to be able to complete all IADL's without limitation. Plan of Care Interventions Electrical Stimulation,Manual Therapy,Neuro Re- education,Patient/Caregiver Educati,Therapeutic Activities,Therapeutic Exercise PT Services Indicated Yes Treatment Frequency and 3x/week x 12 visits Duration These treatments will address the objective and functional deficits as defined above. The patient will be advanced safely and appropriately in order for the patient to progress towards his/her prior level of function. Additional exercises will be introduced and as well as a comprehensive home exercise program upon discharge, if needed, ?to ensure carryover of functional gains achieved in the clinic. This treatment plan has been reviewed and agreement upon by the patient.
--- NOTE | 2023-04-07 09:54 | OPREHPOC ---
Outpatient Therapy Plan of Care This is a Multidisciplinary Plan of Care that may contain components documented by all disciplines (PT, OT, and ST.) PT Problem 1 PT Problem #1 Knowledge Deficit PT Goal 1 Goal Pt. will be independent with a HEP addressing strength and endurance Target Visit 3 PT Problem 2 PT Problem #2 Pain PT Goal 1 Goal Pt. will be able to stand for 30-45 minutes with 2 /10 pain reported to complete yard work Target Visit 12 PT Problem 3 PT Problem #3 Impaired Functional Mobil PT Goal 1 Goal Pt. will be able to stand for 30-45 minutes in order to complete yard work Target Visit 12 PT Goal 2 Goal Pt. will improve Oswestry score by 20% or greater indicating overall functional improvement.
--- NOTE | 2023-05-01 09:38 | PTOPPROGNS ---
Assessment and note entered by Loree Cleveland, PT Evaluation Information Assessment Status Progress Diagnosis vertebral fx, back pain, s/p kyphoplasty Onset 01/27/23 Subjective Information Christopher Hogue reports his back is stiff and still feels weak but he has been able to return to most of his previous activities. He still notes difficulty standing more than 15 mins. He was able to mow his lawn earlier this week for the first time and just had back soreness following it. Assessment PT Clinical Summary Christopher Hogue has completed 10 skilled PT visits for weakness and back pain following a kyphoplasty . He is reporting ongoing stiffness in his back as well as weakness. He notes difficulty with standing longer than 15 minutes. He objectively continues to demonstrate decreased trunk mobility, decreased core strength, and decreased dynamic balance. He will continue to benefit from skilled PT to further address these limitations and progress his home exercises. Plan of Care Interventions Neuro Re-education,Patient/Caregiver Educati, Therapeutic Exercise PT Services Indicated Yes Treatment Frequency and Continue current POC for 2 more visits. Duration These treatments will address the objective and functional deficits as defined above. The patient will be advanced safely and appropriately in order for the patient to progress towards his/her prior level of function. Additional exercises will be introduced and as well as a comprehensive home exercise program upon discharge, if needed, ?to ensure carryover of functional gains achieved in the clinic. This treatment plan has been reviewed and agreement upon by the patient.
--- NOTE | 2023-05-09 11:46 | PTOPDC ---
Assessment and note entered by JT File, PT Evaluation Information Assessment Status Re-evaluation Diagnosis vertebral fx, back pain, s/p kyphoplasty Onset 01/27/23 Subjective Information Patient states he had shooting lower back pain yesterday while doing a pulmonary function test at the doctor, feeling like he pulled something. He reports no pain currently at rest. He notes he has discomfort with standing in one place for any extended length of time, but that he is able to walk for ~30 minutes without difficulty. He notes that his overall ability has improved since starting physical therapy, as he has been able to do activities such as yardwork. He states he is currently near his prior level of function before the vertebral fractures. Reported Pain Level Pain Score 0: Self Report Assessment PT Clinical Summary Christopher Hogue has completed 12 skilled PT visits for weakness and back pain following a kyphoplasty . He notes an increased ability to perform tasks at home, such as yardwork activities. Patient has 16% functional decline as assessed by the Oswestry , decreasing 10% from initial assessment. Today he demonstrated improved lateral extension/flexion ROM, LE strength, and hamstring flexibility. He has improved tolerance to walking and standing, allowing for him to function in the community. Despite his recent flare up of pain from the PFT, patient is to be discharged with independent HEP and recommendation to attend fall prevention/ general exercise classes. Plan of Care PT Services Indicated Yes
--- NOTE | 2023-05-09 11:47 | OPREHPOC ---
Outpatient Therapy Plan of Care This is a Multidisciplinary Plan of Care that may contain components documented by all disciplines (PT, OT, and ST.) PT Problem 1 PT Problem #1 Knowledge Deficit PT Goal 1 Goal Pt. will be independent with a HEP addressing strength and endurance Target Visit 3 Progress Met PT Problem 2 PT Problem #2 Pain PT Goal 1 Goal Pt. will be able to stand for 30-45 minutes with 2 /10 pain reported to complete yard work Target Visit 12 Progress Met PT Problem 3 PT Problem #3 Impaired Functional Mobil PT Goal 1 Goal Pt. will be able to stand for 30-45 minutes in order to complete yard work Target Visit 12 Progress Met PT Goal 2 Goal Pt. will improve Oswestry score by 20% or greater indicating overall functional improvement. Progress Partially Met Comment Oswestry score improved by 10%
== END 2023-05-09 16:14 | disposition home or self-care (01) ==
LOC: CHSPT 09:14
PROVIDERS: Visit Provider Nurse Practitioner Family
DX: M80.08XD Age-related osteoporosis with current pathological fracture, vertebra(e), subsequent encounter for fracture with routine healing (principal)
CPT/HCPCS: 97110; 97112; 97161; 97750

== ENCOUNTER 2023-04-16 13:44 | Outpatient (CLI) | payer MEDICARE, SELFPAY ==
--- NOTE | ~2023-04-16 | DEXA_ITS ---
Bone Density Report Name: DANILO CLARK Age: 77 Sex: Male Ethnicity: White Date of : 1945 Indication: screening for osteoporosis; parental hip fracture; height loss; prior fracture; Referring Provider: Lianne Dinero Study: Bone densitometry was performed. Exam Date: April 16, 2023 Accession number: [id number] Bone Density: Region BMD T-score Z-score Classification AP Spine(L1-L4) 0.845 -2.2 -1.1 Osteopenia Femoral Neck (Left) 0.637 -2.2 -0.6 Osteopenia Total Hip (Left) 0.843 -1.3 -0.2 Osteopenia Femoral Neck (Right) 0.607 -2.4 -0.9 Osteopenia Total Hip (Right) 0.764 -1.8 -0.8 Osteopenia Femoral Neck Mean 0.622 -2.3 -0.8 Osteopenia Total Hip Mean 0.803 -1.5 -0.5 Osteopenia World Health Organization criteria for BMD impression classify patients as: Normal (T-score at or above -1.0), Osteopenia (T-score between -1.0 and -2.5), or Osteoporosis (T-score at or below -2.5). 10-year Fracture Risk: FRAX not reported because: Prior hip or vertebral fracture Clinical Information Provided by Patient: Have had a previous hip or vertebral fracture Has had a low trauma fracture Parent has had a hip fracture Has used the following medications: Vitamin D, Calcium Patient maximum height was 70 No regular weight bearing exercise Drinks caffeinated beverages Impression: The patient has low bone mass, based on the Right Femoral Neck T-score. The patient has risk factors, including: parental hip fracture, previous fracture. Discussion: INCREASED RISK OF FRACTURE DUE TO HISTORY OF LOW TRAUMA FRACTURE. The patient's previous fracture puts the patient at high risk of a future fracture. In untreated patients, the risk of osteoporotic fracture increases approximately two-fold for each 1.0 SD decrease in T-score. Low bone density is not the only risk factor for fracture; also consider factors such as patient's age, frailty or poor health, risk of falling, risk of injury, previous osteoporotic fracture, family history of osteoporosis, cigarette smoking, low body weight, etc. Not everyone with a low trauma fracture has osteoporosis; osteomalacia and other metabolic bone disorders should also be considered. Patients who have osteoporosis should be evaluated for specific diseases and conditions (secondary causes) that may cause or contribute to bone loss and fracture risk. National Osteoporosis Foundation (NOF) recommends pharmacologic intervention for patients with a prior low trauma hip or vertebral fracture regardless of BMD T-score. The patient should follow a healthful lifestyle (good nutrition with adequate calcium and vitamin D, and appropriate weight-bearing exercise). Follow-Up: Consider a repeat BMD and Vertebral Fracture Assessment (VFA) exam in 2 years or sooner if medically necessary, to reassess this patient's status. Reported by: Dr. Dusty Burgess on 04/16/2023 2:13:00 PM.
== END 2023-04-16 13:45 | disposition home or self-care (01) ==
LOC: CHSIMG 13:44
PROVIDERS: PCP Internal Medicine; Visit Provider Internal Medicine
DX: M85.89 Other specified disorders of bone density and structure, multiple sites (principal)
CPT/HCPCS: 77080

== ENCOUNTER 2023-04-23 13:48 | Outpatient (CLI) | payer MEDICARE, SELFPAY ==
[2023-04-23 15:16] LABS: Basophils Percent Auto 0.4 % (0.2-1.2); Eosinophils Absolute Auto 0.1 K/mm3 (0-0.3); Eosinophils Percent Auto 2.1 % (0-4.4); Hematocrit 44.9 % (42.0-52.0); Hemoglobin 14.8 g/dL (14.0-18.0); Immature Granulocyte Absolute 0.02 K/mm3 (0.00-0.031); Immature Granulocyte Percent A 0.3 % (0-0.5); Lymphocytes Absolute Auto 2.09 K/mm3 (0.9-3.2); Mean Corpuscular Hemoglobin 34.8 pg (26-34); Mean Corpuscular Volume 105.6 fl (80-100); Mean Platelet Volume 10.6 fl (7.4-10.4); Monocytes Absolute Auto 0.7 K/mm3 (0.1-0.6); Monocytes Percent Auto 10.5 % (2.6-8.5); Neutrophils Absolute Auto 3.8 K/mm3 (1.3-6.7); Neutrophils Percent Auto 55.7 % (45.5-73.1); Platelet Count Result 188 k/mm3 (150-375); Red Blood Count 4.25 M/mm3 (4.6-6.20); White Blood Count 6.7 K/mm3 (4.5-10.0)
[2023-04-23 15:34] LABS: CRP 0.5 mg/dL (<1.0); Creatine Kinase 47 U/L (55-170)
[2023-04-23 15:54] LABS: Platelet Estimate Adequate (Adequate); Schistocytes None Seen (NORMAL)
[2023-04-23 15:58] LABS: Rheumatoid Factor < 12.0 IU/ML (<12)
[2023-04-23 15:58] LABS: Erythrocyte Sedimentation Rate 15 mm/hr (0-20)
[2023-04-29 04:02] LABS: Aldolase 6.9 U/L (<=8.1)
[2023-04-30 22:10] LABS: Anti Cyclic Citrullinated Pept <16 Units (<20)
[2023-05-05 18:04] LABS: ANA Cascade Screen Negative (Negative)
== END 2023-04-23 13:49 | disposition home or self-care (01) ==
PROVIDERS: PCP Internal Medicine; Visit Provider Internal Medicine Pulmonary Disease
DX: J44.9 Chronic obstructive pulmonary disease, unspecified (principal); J84.9 Interstitial pulmonary disease, unspecified; J98.4 Other disorders of lung; R91.1 Solitary pulmonary nodule
CPT/HCPCS: 36415; 82085; 82550; 85025; 85652; 86038; 86140; 86200; 86331; 86430; 86606; 86609

== ENCOUNTER 2023-05-08 13:21 | Outpatient (CLI) | payer MEDICARE, SELFPAY ==
--- NOTE | 2023-05-13 22:29 | WPDPFTINT ---
PFT Procedure Performed PFT Procedure Performed Spirometry with Pre/Post Bronchodilator Plethysmography (Lung Vol) Diffusing Cap (DLCO) Flow Vol Loop PFT Interpretation DOS: 05/08/2023 REQUESTING: Emil Villavicencio MD REASON FOR TESTING: bronchitis PULMONARY FUNCTION TESTS Results are reliable and reproducible. Spirometry: FEV1 is 2.46 L, 93% predicted, normal. FVC is 3.57 L, 101%, normal. FEV1/FVC ratio 69%, normal. After bronchodilator there is a 3% increase in the FEV1, 2.54 L, 96%. After bronchodilator there was an 8% increase in the FVC, 3.87 L, 110%, normal. Lung volumes: Total lung capacity 6.35 L, 99%, normal. Residual volume 2.50 L, 101%, normal. RV/ TLC 39%, normal. Increased airway resistance. Diffusion: DLCO is 14.4, 63%, mildly decreased. DLCO/ VA is 3.08, 80%, normal. Flow volume loop: Normal IMPRESSION: This study shows normal spirometry without significant response to bronchodilator, normal lung volumes, mild diffusion impairment which corrects for alveolar volume. Lack of response to bronchodilator should not preclude use of clinically indicated Jennifer Felder MD
--- NOTE | 2023-05-13 22:32 | WPDSIXMINUTE ---
Six Minute Walk Procedure Procedure Performed Pulmonary Stress Test (6 min walk) Six Minute Walk Six Minute Walk: DATE OF SERVICE: 05/08/2023 REQUESTING: Jonathan Villavicencio MD REASON FOR TESTING: bronchitis SIX MINUTE WALK This test was conducted per ATS guidelines. The initial saturation was 97%, and initial heart rate was 67 beats per minute. The patient walked without stopping, completing 1050 feet/320 meters. The saturation at the end of testing was 94%, and the heart rate was 99 beats per minute. IMPRESSION: This is a normal study. The patient did not require supplemental oxygen with exertion. Jennifer Felder MD
== END 2023-05-08 13:22 | disposition home or self-care (01) ==
LOC: ANHPFT 13:22
PROVIDERS: PCP Internal Medicine; Visit Provider Internal Medicine Pulmonary Disease
DX: R06.00 Dyspnea, unspecified (principal); J40 Bronchitis, not specified as acute or chronic; Z72.0 Tobacco use
CPT/HCPCS: 94060; 94618; 94726; 94729

== ENCOUNTER 2023-05-19 11:06 | Outpatient (CLI) | payer MEDICARE, SELFPAY ==
--- NOTE | ~2023-05-19 | XR_ITS ---
EXAMINATION: XR lumbar spine 2-3V DATE: 05/19/2023 11:55 INDICATION: Low back pain TECHNIQUE: Anteroposterior and lateral views of the lumbar spine, and cone-down lateral view of the l umbosacral junction were obtained. COMPARISON: None. FINDINGS: There are 5 mm of anterolisthesis of L5 on S1. There is severe loss of intervertebral disc space height at L4-5 and L5-S1. There is moderate loss of disc space height at L2-3. The vertebral mini dy heights are maintained. There is no fracture. Calcified atherosclerosis is noted. IMPRESSION: 1. Severe lumbar spondylosis. Reviewed, dictated and finalized at location A.
--- NOTE | ~2023-05-19 | XR_ITS ---
EXAMINATION: XR hip RT min 2V DATE: 05/19/2023 11:54 INDICATION: Right hip pain. TECHNIQUE: 2 views of right hip were obtained. COMPARISON: None. FINDINGS: Bone alignment is normal. No fracture. There is mild right hip osteoarthritis. IMPRESSION: 1. Mild right hip osteoarthritis. Reviewed, dictated and finalized at location A.
--- NOTE | ~2023-05-19 | XR_ITS ---
EXAMINATION: XR sacroiliac joints min 3V DATE: 05/19/2023 11:53 INDICATION: Chronic sacroiliac pain. Recent T9 kyphoplasty. TECHNIQUE: AP and left and right oblique views of the bilateral sacroiliac joints were obtained. COMPARISON: CT abdomen and pelvis dated 03/05/2022 FINDINGS: No fractures identified. Mild osteoarthritis at the bilateral sacroiliac joints. No erosions to sugge st inflammatory sacroiliitis. Osteoarthritis at the bilateral hips, mild on the right and moderate se verity on the left. Severe lower lumbar spondylosis. Bilateral L5 pars interarticularis defects seen on prior CT are now clearly visualized on the current study. Prostatic calcifications and a few phleb oliths in the pelvis. IMPRESSION: 1. Mild bilateral hip osteoarthritis. No findings to suggest an inflammatory sacroiliitis. 2. Mild right and moderate left hip osteoarthritis. 3. Severe lower lumbar spondylosis. Reviewed, dictated and finalized at location A. IMPRESSION: 1. Mild bilateral hip osteoarthritis. No findings to suggest an inflammatory sa croiliitis. 2. Mild right and moderate left hip osteoarthritis. 3. Severe lower lumbar spondylosis.
== END 2023-05-19 11:07 | disposition home or self-care (01) ==
LOC: CHSIMG 11:08
PROVIDERS: PCP Internal Medicine; Visit Provider Internal Medicine
DX: M54.50 Low back pain, unspecified (principal); M25.551 Pain in right hip; M16.0 Bilateral primary osteoarthritis of hip; M43.06 Spondylolysis, lumbar region
CPT/HCPCS: 72100; 72202; 73502

== ENCOUNTER 2023-05-20 09:16 | Outpatient (CLI) | payer MEDICARE, SELFPAY ==
[2023-05-20] MEDS: ZOLEDRONIC ACID 5 MG/100 ML 100 ML 400 MG IVPB (09:25)
[2023-05-20 09:38] VITALS: BP 160/79; PULSE 68; RESP 16; TEMP 36.6; O2SAT 97; BMI 32.1
--- NOTE | 2023-05-20 09:46 | PC.NURSE ---
Patient here for yearly Reclast infusion. Education given. All concerns answered. IV Reclast administered without difficulty. SEE MAR. Tolerated well. Safe exit of hospital.
== END 2023-05-20 09:17 | disposition home or self-care (01) ==
PROVIDERS: PCP Internal Medicine; Visit Provider Internal Medicine
DX: M81.0 Age-related osteoporosis without current pathological fracture (principal)
CPT/HCPCS: 96374; J3489

== ENCOUNTER 2023-05-22 09:45 | Outpatient (CLI) | payer MEDICARE, SELFPAY ==
--- NOTE | ~2023-05-22 | MR_ITS ---
EXAMINATION: MR lumbar spine wo con DATE: 05/22/2023 11:10 INDICATION: Low back pain. TECHNIQUE: Magnetic resonance imaging (MRI) of the lumbar spine was performed without intravenous con trast. Sequences included sagittal T2-weighted FSE, sagittal T2-weighted FS FSE, sagittal T1-weighted FSE, and axial T2-weighted FSE. COMPARISON: Lumbar spine radiographs 05/19/2023, chest CT 03/06/2023 FINDINGS: There is 17 degrees dextroscoliosis of lumbar spine. There are chronic bilateral L5 pars de fects. There is 7 mm anterolisthesis of L5 on S1. There is a burst fracture of T12 with 2/5 loss of h eight, retropulsion of bone 1 mm into central spinal canal, and edema-like marrow signal intensity. T here is mildly decreased disc height at L2-L3 and L3-L4 and severely decreased disc height at L4-L5 a nd L5-S1. There is mild chronic height loss of L5 vertebral body posteriorly. The distal spinal cord signal intensity is normal. The conus medullaris is at L1. The following disc levels are specifically discussed: L1-L2: The disc is bulging and has an annular fissure. There is mild bilateral facet joint osteoarthr itis. There is mild bilateral neural foraminal stenosis. There is mild central canal stenosis. L2-L3: The disc is bulging and has an annular fissure. There is mild right and moderate left facet asher int osteoarthritis. There is mild bilateral neural foraminal stenosis. There is mild central canal st enosis. L3-L4: The disc is bulging and has an annular fissure. There is mild right and moderate left facet asher int osteoarthritis. There is mild right and moderate left neural foraminal stenosis. There is mild ce ntral canal stenosis. L4-L5: The disc is bulging and has an annular fissure. There is severe bilateral facet joint osteoart hritis. There is moderate bilateral neural foraminal stenosis. There is mild central canal stenosis. L5-S1: The disc is bulging and has an annular fissure. There is severe bilateral facet joint osteoart hritis. There is moderate bilateral neural foraminal stenosis. There is mild central canal stenosis. IMPRESSION: 1. Acute/subacute T12 burst fracture. 2. Severe lumbar spondylosis. 3. Chronic bilateral L5 pars defects with grade 1 anterolisthesis of L5 on S1. 4. Lumbar dextroscoliosis. Reviewed, dictated and finalized at location A.
== END 2023-05-22 09:46 | disposition home or self-care (01) ==
LOC: CHSIMG 09:46
PROVIDERS: PCP Internal Medicine; Visit Provider Internal Medicine
DX: M54.50 Low back pain, unspecified (principal); M43.16 Spondylolisthesis, lumbar region; S22.081A Stable burst fracture of T11-T12 vertebra, initial encounter for closed fracture; M79.606 Pain in leg, unspecified; R20.0 Anesthesia of skin; M41.86 Other forms of scoliosis, lumbar region; M53.86 Other specified dorsopathies, lumbar region
CPT/HCPCS: 72148

== ENCOUNTER 2023-07-01 09:07 | Outpatient (CLI) | payer MEDICARE, SELFPAY ==
[2023-07-01 09:46] LABS: Alanine Aminotransferase 39 U/L (16-63); Albumin Level 3.4 g/dL (3.4-5.0); Alkaline Phosphatase 81 U/L (46-116); Anion Gap 10 mmol/L (8-16); Aspartate Amino Transferase 25 U/L (15-37); Bilirubin,Total 0.6 mg/dL (0.00-1.00); Blood Urea Nitrogen 13 mg/dL (7-18); Calcium 8.9 mg/dL (8.5-10.1); Carbon Dioxide 24 mmol/L (21-32); Chloride 105 mmol/L (98-108); Estimated Glomerular Filt Rate > 60; Glucose 113 mg/dL (70-99); Osmolality Calculated 289 mOsm/kg (285-295); Potassium 4.4 mmol/L (3.5-5.1); Sodium 139 mmol/L (136-145); Total Protein 6.4 g/dL (6.4-8.2)
== END 2023-07-01 09:08 | disposition home or self-care (01) ==
PROVIDERS: PCP Internal Medicine; Visit Provider Internal Medicine
DX: K74.60 Unspecified cirrhosis of liver (principal)
CPT/HCPCS: 36415; 80053

== ENCOUNTER → 2023-07-15 14:24 | Outpatient (CLI) | payer MEDICARE, SELFPAY ==
--- NOTE | ~2023-07-15 | XR_ITS ---
XR lumbar spine min 4V DATE: 07/15/2023 14:57 INDICATION: Low back pain TECHNIQUE: AP, lateral and coned lateral lumbosacral views COMPARISON: None FINDINGS: There is diffuse osteopenia. There is mild thoracolumbar levoscoliosis. Moderate burst fracture deformity and vertebroplasty at T12. There is minimal loss of height and anterior wedging at T11, which appears chronic. There is degenerative disc disease throughout the lumbar and lumbosacral area, most severe at L5-S1, moderately severe at L2-3 and L4-5 and moderate the remaining levels. No lumbar spine fracture is detected the lumbar pedicles are intact. The sacroiliac joints appear normal. IMPRESSION: Osteopenia Mild thoracolumbar levoscoliosis Chronic burst fracture deformity and vertebroplasty at T12 Mild likely chronic anterior wedge compression fracture deformity at T11 Multilevel degenerative disc disease of the lumbar spine, most severe at L5-S1 Reviewed, dictated and finalized at location A.
== END ==
PROVIDERS: PCP Internal Medicine; Visit Provider Nurse Practitioner Family
DX: M41.85 Other forms of scoliosis, thoracolumbar region (principal); S22.081A Stable burst fracture of T11-T12 vertebra, initial encounter for closed fracture; M43.06 Spondylolysis, lumbar region; M51.37 Other intervertebral disc degeneration, lumbosacral region
CPT/HCPCS: 72110

== ENCOUNTER 2023-09-23 07:36 | Outpatient (CLI) | payer MEDICARE, SELFPAY ==
[2023-09-23 08:23] LABS: Basophils Absolute Auto 0.03 K/mm3 (0.00-0.10); Basophils Percent Auto 0.5 % (0.0-1.0); Eosinophils Absolute Auto 0.14 K/mm3 (0.02-0.50); Eosinophils Percent Auto 2.2 % (1.0-6.0); Hematocrit 45.8 % (37.0-46.0); Hemoglobin 15.3 g/dL (12.4-15.3); Immature Granulocyte Absolute 0.03 K/mm3 (0.00-0.00); Immature Granulocyte Percent A 0.5 % (0.0-0.0); Lymphocytes Absolute Auto 2.34 K/mm3 (1.10-4.50); Lymphocytes Percent Auto 36.1 % (18.0-42.0); Mean Corpuscular HGB Conc 33.4 g/dL (32.0-36.0); Mean Corpuscular Volume 107.8 fL (78.0-102.0); Mean Platelet Volume 10.1 fl (8.7-11.0); Monocytes Absolute Auto 0.61 K/mm3 (0.10-0.90); Monocytes Percent Auto 9.4 % (2.0-11.0); Neutrophils Absolute Auto 3.3 K/mm3 (1.7-7.2); Neutrophils Percent Auto 51.3 % (50.0-70.0); Platelet Count Result 223 K/mm3 (150-420); Red Blood Count 4.25 M/mm3 (4.70-6.10); Red Cell Distribution Width 12.8 % (11.6-14.4); White Blood Count 6.5 K/mm3 (4.8-10.8)
[2023-09-23 08:24] LABS: Appearance Urine Clear (Clear); Bilirubin Urine Negative (Negative); Blood Urine Trace-Intact (Negative); Color Urine Yellow (Yellow); Glucose Urine UA Negative (Negative); Ketones Urine Negative (Negative); Leukocyte Esterase Ur Negative LEU/UL (Negative); Nitrate Urine Negative (Negative); Protein Urine Negative (Negative); Specific Grav Ur 1.025 (1.010-1.020); Urobilinogen Urine 0.2 mg/dL (0.2-1.0); pH Urine 5.5 (5.0-8.0)
[2023-09-23 08:30] LABS: Add Urine Microscopic? YES; Bacteria Urine Rare /hpf; RBC Urine 0-2 /hpf (0-2); WBC Urine None seen /hpf (0-3)
[2023-09-23 08:31] LABS: Hemoglobin A1C 5.2 % (<5.7)
[2023-09-23 09:25] LABS: Alanine Aminotransferase 30 U/L (16-63); Albumin Level 3.5 g/dL (3.4-5.0); Alkaline Phosphatase 46 U/L (46-116); Anion Gap 3 mmol/L (8-16); Aspartate Amino Transferase 19 U/L (15-37); Bilirubin,Total 0.6 mg/dL (0.00-1.00); Blood Urea Nitrogen 11 mg/dL (7-18); Calcium 8.9 mg/dL (8.5-10.1); Carbon Dioxide 35 mmol/L (21-32); Chloride 101 mmol/L (98-108); Cholesterol 161 mg/dL (0-200); Estimated Glomerular Filt Rate > 60; Glucose 91 mg/dL (70-99); HDL Direct 43 mg/dL (40-60); LDL Cholesterol Calculated 106 mg/dL (<130); Osmolality Calculated 287 mOsm/kg (285-295); Potassium 4.4 mmol/L (3.5-5.1); Sodium 139 mmol/L (136-145); Total Protein 6.5 g/dL (6.4-8.2); Triglycerides 60 mg/dL (0-150); Vitamin B12 687 pg/mL (193-986)
== END 2023-09-23 07:37 | disposition home or self-care (01) ==
LOC: CHSLAB 07:39
PROVIDERS: PCP Internal Medicine; Visit Provider Internal Medicine
DX: N39.0 Urinary tract infection, site not specified (principal); I10 Essential (primary) hypertension; R73.01 Impaired fasting glucose; E78.5 Hyperlipidemia, unspecified
CPT/HCPCS: 36415; 80053; 80061; 81001; 82607; 83036; 85025

== ENCOUNTER 2023-11-18 11:34 | Outpatient (CLI) | payer MEDICARE, SELFPAY | END 2023-11-18 11:35 | disposition home or self-care (01) | LOC: CHSLAB 11:36 | PROVIDERS: PCP Internal Medicine; Visit Provider Specialist | DX: C44.02 Squamous cell carcinoma of skin of lip (principal) | CPT/HCPCS: 88305 ==

== ENCOUNTER 2024-01-20 16:26 | Outpatient (CLI) | payer MEDICARE, SELFPAY ==
--- NOTE | ~2024-01-20 | XR_ITS ---
EXAM: XR lumbar spine 2-3V DATE: 01/20/2024 17:08 HISTORY: LOWER BACK PAIN. COMPARISON: 07/15/2023. FINDINGS: Osteopenia. 5 nonrib-bearing lumbar-type vertebral bodies. Moderate scoliosis. Vertebroplas ty cement at T9 and T12. Pedicles intact. 7 mm anterolisthesis at L5-S1. Stable moderate height loss at T12. Multilevel disc space narrowing and marginal osteophytosis with vacuum phenomenon at L2-3, L4 -L5, and L5-S1. Moderate facet hypertrophy and sclerosis in the lower lumbar spine, with interspinous narrowing. No fracture or dislocation. Atherosclerotic calcifications, fusiform dilation of the norm al aorta up to 3.0 cm. IMPRESSION: No acute fracture or traumatic malalignment detected in the lumbar spine. Stable grade 1 anterolisthesis at L5-S1. Multilevel severe degenerative disc disease. Multilevel mode rate facet arthropathy. Fusiform dilation of the abdominal aorta up to 3.0 cm. Recommend outpatient ultrasound of the aorta f or further evaluation and to establish a baseline for further surveillance. Reviewed, dictated and finalized at location K. IMPRESSION: No acute fracture or traumatic malalignment detected in the lumbar spine. Stable grade 1 anterolisthesis at L5-S1. Multilevel severe degenerative disc di sease. Multilevel moderate facet arthropathy. Fusiform dilation of the abdominal aorta up to 3.0 cm. Recommend outpatient ult rasound of the aorta for further evaluation and to establish a baseline for fur ther surveillance.
--- NOTE | ~2024-01-20 | XR_ITS ---
EXAMINATION: XR ribs LT 2V w CXR 2V Exam Date/Time: 01/20/2024 16:45 CDT HISTORY: FALL 3 DAYS AGO/MID LEFT RIB PAIN Comparison: 03/05/2023, report only. RESULT: Lines, tubes, and devices: None. Lungs and pleura: Senescent changes. Streaky bibasilar opacities, likely representing scar/atelectas is. Cardiothymic silhouette: Stable. Other: No acute upper abdominal finding. Decreased osseous mineralization. Degenerative changes in m ultiple presumed chronic compression fractures in the thoracic spine. Nondisplaced anterolateral left fifth through seventh rib fractures. The seventh rib fracture is segmental. Healed left 11th rib fra cture. IMPRESSION: No acute cardiopulmonary process. Nondisplaced anterolateral left fifth through seventh rib fractures. The seventh rib fractures segmen rui. Reviewed, dictated and finalized at location K. IMPRESSION: No acute cardiopulmonary process. Nondisplaced anterolateral left fifth through seventh rib fractures. The sevent h rib fractures segmental.
--- NOTE | ~2024-01-20 | XR_ITS ---
EXAM: XR thoracic spine 3V DATE: 01/20/2024 17:08 HISTORY: MID BACK PAIN FOREVER . COMPARISON: X-ray L-spine, same date at 07/15/2023. FINDINGS: Osteopenia. Moderate scoliosis. Vertebroplasty cement at T9 and T12. Exaggerated thoracic kyphosis. Stable moderate anterior wedge deformity at T9 and T12. Mild anterior wedge deformity at T5 -T8. Multilevel moderate disc space narrowing and marginal osteophytosis, including bridging osteophy syeda. No traumatic malalignment or fracture. Visualized lung parenchyma is clear. IMPRESSION: Mild anterior wedge deformity at T5-T8, probably chronic unless accompanied by recent trauma or acute /worsening back pain. Otherwise, no acute fracture or traumatic malalignment detected in the thoracic spine. Stable moderate compression fractures at T9 and T12, status post vertebroplasty. Reviewed, dictated and finalized at location K. IMPRESSION: Mild anterior wedge deformity at T5-T8, probably chronic unless accompanied by recent trauma or acute/worsening back pain. Otherwise, no acute fracture or traumatic malalignment detected in the thoracic spine. Stable moderate compression fractures at T9 and T12, status post vertebroplasty .
== END 2024-01-20 16:27 | disposition home or self-care (01) ==
LOC: CHSIMG 16:28
PROVIDERS: PCP Internal Medicine; Visit Provider Internal Medicine
DX: S29.9XXA Unspecified injury of thorax, initial encounter (principal); M54.50 Low back pain, unspecified; S22.42XA Multiple fractures of ribs, left side, initial encounter for closed fracture; M48.54XA Collapsed vertebra, not elsewhere classified, thoracic region, initial encounter for fracture; Z98.1 Arthrodesis status; M51.36 Other intervertebral disc degeneration, lumbar region; I77.811 Abdominal aortic ectasia
CPT/HCPCS: 71046; 71100; 72072; 72100

== ENCOUNTER 2024-01-21 10:31 | Outpatient (CLI) | payer MEDICARE, SELFPAY ==
--- NOTE | ~2024-01-21 | CT_ITS ---
EXAMINATION: CT thoracic spine wo con DATE: 01/21/2024 11:06 INDICATION: Back pain after fall TECHNIQUE: Computed tomography (CT) of the thoracic spine was performed without intravenous contrast. The dose-length product was 1582.71 mGy-cm. Automated exposure control and iterative reconstruction technique were employed. COMPARISON: None FINDINGS: There are compression fractures of T9 and T12 with associated vertebroplasty changes, consi stent with chronic fractures. There is mild loss of vertebral body height at T3, T5, T6, T7 and T8, l ikely chronic. There is degenerative disc disease at multiple levels. There is accentuated thoracic k yphosis. There is mild scoliosis. IMPRESSION: 1. Chronic compression fracture of T9 burst fracture of T12, both treated with vertebroplasty. There are multiple additional likely chronic mild compression fractures of the thoracic spine. 2: Moderate thoracic spondylosis with scoliosis. Reviewed, dictated and finalized at location B. IMPRESSION: 1. Chronic compression fracture of T9 burst fracture of T12, both treated with vertebroplasty. There are multiple additional likely chronic mild compression f ractures of the thoracic spine. 2: Moderate thoracic spondylosis with scoliosis.
== END 2024-01-21 10:32 | disposition home or self-care (01) ==
LOC: CHSIMG 10:34
PROVIDERS: PCP Internal Medicine; Visit Provider Internal Medicine
DX: M54.50 Low back pain, unspecified (principal); I71.40 Abdominal aortic aneurysm, without rupture, unspecified; M43.04 Spondylolysis, thoracic region; M41.84 Other forms of scoliosis, thoracic region; M48.54XA Collapsed vertebra, not elsewhere classified, thoracic region, initial encounter for fracture
CPT/HCPCS: 72128

== ENCOUNTER 2024-01-23 09:11 | Outpatient (CLI) | payer MEDICARE, SELFPAY ==
--- NOTE | ~2024-01-23 | CT_ITS ---
EXAMINATION: CTA abdomen pelvis DATE: 01/23/2024 10:35 INDICATION: Abdominal aortic aneurysm. TECHNIQUE: Computed tomographic angiography (CTA) of the abdomen and pelvis was performed with 100 mL Omnipaque-350 intravenous contrast. Automated exposure control and iterative reconstruction techniqu e were employed. The dose-length product was 659.83 mGy-cm. Maximum intensity projection 3D-reconstru ctions of the aorta and other arteries were constructed by the technologist on a separate workstation . COMPARISON: CT abdomen and pelvis 03/05/2022 FINDINGS: The visualized portions of the lung bases demonstrates mild atelectasis and mild chronic in terstitial lung disease. No pleural effusion. The heart size is normal. No pericardial effusion. The liver, gallbladder, spleen, pancreas, adrenal glands, and kidneys are normal. There are bilateral ing uinal hernias containing fat. The prostate is mildly enlarged. There is diverticulosis of the colon w ithout evidence of diverticulitis. There are no dilated loops of bowel. The appendix is normal. There are no pathologically enlarged lymph nodes. There is no free intraperitoneal fluid. There is a signi ficant stenosis of celiac axis, superior mesenteric artery, the renal arteries, or inferior mesenteri c artery. 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 There are chronic bilateral L5 par s defects. There is 6 mm anterolisthesis of L5 on S1. There is severe lumbar spondylosis. There are c hronic burst fractures of T9 and T12 with changes of vertebroplasty. There is mild chronic loss of mu ltiple vertebral bodies. IMPRESSION: 1. 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 Reviewed, dictated and finalized at location A.
[2024-01-23 09:58] LABS: Estimated Glomerular Filt Rate > 60
== END 2024-01-23 09:12 | disposition home or self-care (01) ==
LOC: CHSIMG 09:13
PROVIDERS: PCP Internal Medicine; Visit Provider Internal Medicine
DX: M54.50 Low back pain, unspecified (principal); I71.43 Infrarenal abdominal aortic aneurysm, without rupture
CPT/HCPCS: 74174; Q9967

== ENCOUNTER 2024-03-15 07:17 | Outpatient (CLI) | payer MEDICARE, SELFPAY ==
[2024-03-15 07:31] LABS: Hematocrit 40.2 % (37.0-46.0); Mean Corpuscular HGB Conc 34.8 g/dL (32-36); Mean Corpuscular Hemoglobin 37.7 pg (27.0-31.0); Mean Corpuscular Volume 108.4 fL (78.0-102.0); Mean Platelet Volume 9.6 fl (8.7-11.0); Platelet Count Result 172 K/mm3 (150-420); Red Blood Count 3.71 M/mm3 (4.70-6.10); Red Cell Distribution Width 13.1 % (11.6-14.4); White Blood Count 7.5 K/mm3 (4.8-10.8)
[2024-03-15 07:42] LABS: Appearance Urine Clear (Clear); Bilirubin Urine Negative (Negative); Blood Urine Negative (Negative); Color Urine Yellow (Yellow); Glucose Urine UA Negative (Negative); Ketones Urine Negative (Negative); Leukocyte Esterase Ur Negative (Negative); Nitrate Urine Negative (Negative); Protein Urine Negative (Negative); Specific Grav Ur 1.025 (1.010-1.020); Urobilinogen Urine 0.2 mg/dL (0.2-1.0)
[2024-03-15 07:49] LABS: Add Urine Microscopic? NO
[2024-03-15 07:57] LABS: Hemoglobin A1C 4.7 % (<5.7)
[2024-03-15 07:59] LABS: Alanine Aminotransferase 31 U/L (16-63); Albumin Level 2.9 g/dL (3.4-5.0); Alkaline Phosphatase 45 U/L (46-116); Anion Gap 7 mmol/L (4-12); Aspartate Amino Transferase 21 U/L (15-37); Bilirubin,Total 0.4 mg/dL (0.00-1.00); Blood Urea Nitrogen 10 mg/dL (7-18); Carbon Dioxide 28 mmol/L (21-32); Chloride 107 mmol/L (98-108); Cholesterol 138 mg/dL (0-200); Creatine Kinase 22 U/L (39-308); Estimated Glomerular Filt Rate > 60; Glucose 100 mg/dL (70-99); HDL Direct 49 mg/dL (40-60); LDL Cholesterol Calculated 78 mg/dL (<130); Osmolality Calculated 293 mOsm/kg (285-295); Potassium 4.3 mmol/L (3.5-5.1); Sodium 142 mmol/L (136-145); Total Protein 5.5 g/dL (6.4-8.2); Triglycerides 56 mg/dL (0-150)
[2024-03-17 11:24] LABS: Alpha Fetoprotein Tumor Marker 4.8 ng/mL (<6.1)
== END 2024-03-15 07:18 | disposition home or self-care (01) ==
LOC: CHSLAB 07:19
PROVIDERS: PCP Internal Medicine; Visit Provider Internal Medicine
DX: I10 Essential (primary) hypertension (principal); E78.2 Mixed hyperlipidemia; R73.01 Impaired fasting glucose; E53.8 Deficiency of other specified B group vitamins; K74.60 Unspecified cirrhosis of liver
CPT/HCPCS: 36415; 80053; 80061; 81003; 82105; 82550; 83036; 85027

== ENCOUNTER 2024-06-07 09:48 | Outpatient (CLI) | payer MEDICARE, SELFPAY ==
[2024-06-07 10:07] VITALS: BP 134/73; PULSE 60; RESP 14; TEMP 36.4; O2SAT 99; BMI 29.7
[2024-06-07] MEDS: ZOLEDRONIC ACID 5 MG/100 ML 100 ML 400 MG IVPB (10:12)
--- NOTE | 2024-06-07 10:33 | PC.NURSE ---
Patient here for yearly IV Reclast. Education given. No concerns voiced. Infusion administered. SEE MAR/patient care notes. Tolerated well.
== END 2024-06-07 09:49 | disposition home or self-care (01) ==
PROVIDERS: PCP Internal Medicine; Visit Provider Internal Medicine
DX: M81.0 Age-related osteoporosis without current pathological fracture (principal)
CPT/HCPCS: 96374; J3489

== ENCOUNTER 2024-08-05 07:09 | Outpatient (CLI) | payer MEDICARE, SELFPAY ==
--- NOTE | ~2024-08-05 | US_ITS ---
Limited Abdominal Sonogram: Real-time sonographic imaging of the right upper quadrant was performed. Clinical History: Hepatic steatosis Findings: The liver appears heterogeneous, with no evidence of mass lesion or bile duct dilatation. Main portal vein demonstrates normal direction of flow. The gallbladder is well distended, and appear s normal with no evidence of gallstone or wall thickening. The common bile duct measures 4 mm. The v isualized pancreas, aorta, and IVC are unremarkable. Impression: Probable diffuse fatty infiltration of liver. Reviewed, dictated and finalized at location M. [employer] Impression: Probable diffuse fatty infiltration of liver.
== END 2024-08-05 07:10 | disposition home or self-care (01) ==
LOC: CHSIMG 07:10
PROVIDERS: PCP Internal Medicine; Visit Provider Nurse Practitioner Family
DX: K76.0 Fatty (change of) liver, not elsewhere classified (principal); K70.9 Alcoholic liver disease, unspecified; R93.2 Abnormal findings on diagnostic imaging of liver and biliary tract
CPT/HCPCS: 76705

== ENCOUNTER 2024-09-16 07:13 | Outpatient (CLI) | payer MEDICARE, SELFPAY ==
[2024-09-16 07:29] LABS: Add Urine Microscopic? NO; Appearance Urine Clear (Clear); Basophils Absolute Auto 0.03 K/mm3 (0.00-0.10); Basophils Percent Auto 0.4 % (0.0-1.0); Bilirubin Urine Negative (Negative); Blood Urine Negative (Negative); Color Urine Yellow (Yellow); Eosinophils Absolute Auto 0.24 K/mm3 (0.02-0.50); Eosinophils Percent Auto 3.3 % (1.0-6.0); Glucose Urine UA Negative (Negative); Hematocrit 43.8 % (37.0-46.0); Immature Granulocyte Absolute 0.02 K/mm3 (0.00-0.00); Immature Granulocyte Percent A 0.3 % (0.0-0.0); Ketones Urine Negative (Negative); Leukocyte Esterase Ur Negative (Negative); Lymphocytes Absolute Auto 2.33 K/mm3 (1.10-4.50); Lymphocytes Percent Auto 31.9 % (18.0-42.0); Mean Corpuscular HGB Conc 34.2 g/dL (32-36); Mean Corpuscular Hemoglobin 36.1 pg (27.0-31.0); Mean Corpuscular Volume 105.3 fL (78.0-102.0); Mean Platelet Volume 9.8 fl (8.7-11.0); Monocytes Absolute Auto 0.68 K/mm3 (0.10-0.90); Monocytes Percent Auto 9.3 % (2.0-11.0); Neutrophils Absolute Auto 4.01 K/mm3 (1.70-7.20); Neutrophils Percent Auto 54.8 % (50.0-70.0); Nitrate Urine Negative (Negative); Platelet Count Result 186 K/mm3 (150-420); Protein Urine Negative (Negative); Red Blood Count 4.16 M/mm3 (4.70-6.10); Red Cell Distribution Width 12.7 % (11.6-14.4); Specific Grav Ur 1.025 (1.010-1.020); Urobilinogen Urine 0.2 mg/dL (0.2-1.0); White Blood Count 7.3 K/mm3 (4.8-10.8); pH Urine 5.5 (5.0-8.0)
[2024-09-16 08:11] LABS: Alanine Aminotransferase 29 U/L (16-63); Albumin Level 3.2 g/dL (3.4-5.0); Alkaline Phosphatase 43 U/L (46-116); Anion Gap 5 mmol/L (4-12); Aspartate Amino Transferase 24 U/L (15-37); Bilirubin,Total 0.4 mg/dL (0.00-1.00); Blood Urea Nitrogen 12 mg/dL (7-18); Calcium 8.6 mg/dL (8.5-10.1); Carbon Dioxide 31 mmol/L (21-32); Chloride 106 mmol/L (98-108); Cholesterol 149 mg/dL (0-200); Estimated Glomerular Filt Rate > 60; Free T4 Free Thyroxine 0.82 ng/dL (0.76-1.46); Glucose 108 mg/dL (70-99); HDL Direct 55 mg/dL (40-60); LDL Cholesterol Calculated 85 mg/dL (<130); Osmolality Calculated 294 mOsm/kg (285-295); Potassium 4.7 mmol/L (3.5-5.1); Sodium 142 mmol/L (136-145); Thyroid Stimulating Hormone 1.11 uIU/mL (0.36-3.74); Total Protein 6.3 g/dL (6.4-8.2); Triglycerides 47 mg/dL (0-150); Vitamin B12 361 pg/mL (193-986)
[2024-09-16 08:24] LABS: Ammonia < 10 umol/L (11-32)
== END 2024-09-16 07:14 | disposition home or self-care (01) ==
LOC: CHSLAB 07:16
PROVIDERS: PCP Internal Medicine; Visit Provider Internal Medicine
DX: I10 Essential (primary) hypertension (principal); D75.0 Familial erythrocytosis; R73.01 Impaired fasting glucose; K74.00 Hepatic fibrosis, unspecified; E53.8 Deficiency of other specified B group vitamins; I49.3 Ventricular premature depolarization
CPT/HCPCS: 36415; 80053; 80061; 81003; 82140; 82607; 83036; 84439; 84443; 85025

== ENCOUNTER 2025-03-07 07:21 | Outpatient (CLI) | payer MEDICARE, SELFPAY ==
--- OUTSIDE RECORDS SUMMARY | 2025-03-07 07:27 | XMS_ITS | Clinical Summary ---
Author Organization [facility] Address [address] [place] [address] Care Team Providers Care Weight Caller Name Role Phone Lianne Dinero MD Primary Care Provider [phone] Allergies No known active allergies Medications losartan (COZAAR) 25 mg tablet Take 0.5 tablets (12.5 mg total) by mouth daily Active cetirizine (ZyrTEC) 5 mg tablet Take 1 tablet (5 mg total) by mouth daily Active carvediloL (COREG) 3.125 mg tablet 2 Active fluticasone propionate (FLONASE) 50 mcg/actuation nasal spray Administer 1 spray into each nostril daily Active cholecalciferol (Vitamin D3) 400 unit capsule daily Active CALCIUM ACETATE ORAL Take by mouth 1200 mg daily Active cyanocobalamin, vitamin B-12, 1,000 mcg/mL kit Inject as directed Active multivitamin tabletIndicatio ns:Vitamin Deficiency Prevention Take 1 tablet by mouth Active cholestyramine (QUESTRAN) 4 gram powder Take 1 packet (4 g total) by mouth 2 (two) times a day as needed (chronic diarrhea) Dissolve in 8 oz of liquid and drink before a meal; Take 1 hour before or 4 hours after other meds. 90 packet 3 5 Active Active Problems Problem Noted Date Diagnosed Date Alcoholic liver disease 01/31/2025 Hepatic fibrosis 01/31/2025 Tubular adenoma of colon 01/31/2025 Tobacco use disorder 01/31/2025 Collagenous colitis 08/02/2024 Chronic diarrhea 03/25/2022 Overview (03/25/2022): Added automatically from request for surgery [id number] Esophageal dysphagia 04/27/2019 Overview (04/27/2019): Added automatically from request for surgery [id number] Cervical radiculopathy 12/11/2012 Cervicalgia 12/09/2012 Skin neoplasm 07/19/2010 Encounters Date Type Department Care Team Description 02/15/2025 Telephone [facility] Gastroenterology at [address] [place] [address] Martha Thomson Prep Instructions 02/11/2025 Telephone [facility] Gastroenterology at [address] [place] [address] Kim Cabral LPN 02/08/2025 Results Follow-Up [facility] Gastroenterology at [address], [place] [address] Guillermo Perez NP Comprehensive metabolic panel, CBC with auto differential, Iron profile w/ IBC, Additional followed-up results: 4 02/04/2025 12:19 PM CDT - 02/04/2025 11:59 [place] [address] Discharge Disposition: Discharge to home or self care 01/31/2025 10:00 AM CDT Lab [address] Hepatic fibrosis; Alcoholic liver disease; Elevated ferritin 01/31/2025 9:30 AM CDT Office Visit [facility] Gastroenterology at [address] [place] [address] Guillermo Perez NP Chronic diarrhea (Primary Dx); Collagenous colitis; Hepatic fibrosis; Alcoholic liver disease; Tubular adenoma of colon; Tobacco use disorder; Elevated ferritin; Vitamin A deficiency from Last 3 Months Surgical History Surgery Date Site/Laterality Comments REPLACEMENT TOTAL KNEE 09/29/2013 - 09/28/2014 Right [facility] INGUINAL HERNIA REPAIR 09/29/2000 - 09/28/2001 COLONOSCOPY 11/19/2012 last screening , 03/2022 10 yr follow up UPPER GASTROINTESTINAL ENDOSCOPY 09/29/2015 - 09/28/2016 Medical History Medical History Date Comments Palpitations Palpitations - ( Added by TW Conv) Dysphagia Hypertension GERD (gastroesophageal reflux disease) Social History Tobacco Use Types Packs/Day Years Used Date Smoking Tobacco: Light Smoker Cigars Smokeless Tobacco: Current Chew Tobacco Cessation:Ready to Q uit: Not Asked; Counseling Given: Not Answered Comments:cigars AUDIT-C Answer Date Recorded Q1: How often do you have a drink containing alc ohol? 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 Gender Identity Not on file Sexual Orientation Not on file Obstetrics History Last Filed Vital Signs Vital Sign Reading Time Taken Comments Blood Pressure 140/83 01/31/2025 9:12 AM CDT Pulse 70 01/31/2025 9:12 AM CDT Temperature 36.8 C (98.3 F) 06/10/2019 7:48 AM CDT Respiratory Rate 16 08/27/2022 1:07 PM INTERNAL MEDICINE SPECIALIST Oxygen Saturation 98% 01/31/2025 9:12 AM CDT Inhaled Oxygen Concentration - - Weight 90 kg (198 lb 8 oz) 01/31/2025 9:12 AM CD T Height 172.7 cm (5' 8) 01/31/2025 9:12 AM CDT Body Mass Index 30.18 01/31/2025 9:12 AM CDT Plan of Treatment Upcoming Encounters Date Type Department Care Team (Late st Contact Info) Description 03/30/2025 7:30 AM CDT Hospital Encounter [facility] [address] [place] [address] John Valdovinos DO [address] [place] [address] [place] [address] 03/30/2025 7:30 AM CDT - 03/30/2025 8:00 AM CDT Surgery [facility] [address] [place] [address] John Valdovinos, DO [address] [facility] [place] [address] COLONOSCOPY Scheduled Procedures Name Priority Associated Diagnoses Date/Ti me COLONOSCOPY Collagenous colitis 03/30/2025 7:30 AM CDT Health Maintenance Due Date Last Done Comments Abdominal Aortic Aneurysm (A AA) Screen 2008 Well Visit 65+ 2008 Pneumococcal vaccine 65+ (2 of 2 - PPSV23) 08/26/2015 07/01/2015 Zoster Vaccine (2 of 2) 08/07/2018 06/12/2018 Fall Risk Assessment 04/10/2023 04/10/2022 Depression Screening 10/03/2023 10/03/2022, 07/01/2022, 05/06/2022, Additional history exists DTaP/Tdap/Td Vaccine (2 - Td or Tdap) 04/22/2024 04/22/2014 Covid-19 Vaccine (4 - 2023-2 5 season) 2024 08/08/2021, 12/08/2020, 11/10/2020 Influenza Vaccine (Season Ended) 2025 07/18/2021, 07/17/2018, 07/23/2017, Additional history exists Hepatitis B Screening Completed 08/04/2024 Procedures Procedure Name Priority Date/Time Associated Diagnosis Comments EGFR Routine 01/31/2025 9:40 AM CDT Hepatic fibrosis Alcoholic liver disease Elevated ferritin DIFFERENTIAL AUTO Routine 01/31/2025 9:4 0 AM CDT Hepatic fibrosis Alcoholic liver disease Elevated ferritin HEMOCHROMATOSIS HFE GENE ANALYSIS Routine 01/31/2025 9:40 AM CDT FERRITIN Routine 01/31/2025 9:40 AM CDT Hepatic fibrosis Alcoholic liver disease Elevated ferritin IRON PROFILE W/ IBC Routine 01/31/2025 9 :40 AM CDT Hepatic fibrosis Alcoholic liver disease Elevated ferritin CBC WITH AUTO DIFFERENTIAL Routine 01/31/2025 9:40 AM CDT Hepatic fibrosis Alcoholic liver disease Elevated ferritin COMPREHENSIVE METABOLIC PANEL Routine 01/31/2025 9:40 AM CDT Hepatic fibrosis Alcoholic liver disease Elevated ferritin from Last 3 Months Results * eGFR (01/31/2025 9:40 AM CDT) eGFR 86 >=60 mL/min/1. 73 m2 Comment: Interpretive Data Reference Interval Normal >/= 90 mL/min/1.73m2 Mildly decreased* 60 - 89 mL/min/1.73m2 Mildly to moderately decreased 45 - 59 mL/min/1.73m2 Moderately to severely decreased 30 - 44 mL/min/1.73m2 Severely decreased 15 - 29 mL/min/1.73m2 Kidney Failure < 15 mL/min/1.73m2 *Relative to young adult level Estimated glomerular filtration rate is determined by the 2020 CKD-EPI equation recommended by the National Kidney Foundation (A Unifying Approach to GFR Estimation: Recommendations of the NKF-ASK Task Force on Reassessing the Inclusion of Race in Diagnosing Kidney Disease, JASN 2020). The CKD-EPI equation should not be used for patients with unstable renal function and has not been validated in children and those over 70. Current interpretive data was last reviewed 2021. Blood 01/31/2025 9:40 AM CDT 01/31/2025 1:27 PM CDT Guillermo Perez HRBP LAB BLOOD ORDERABLE S Final Result JAYCOB ROBERTSON ([place]) 1 [facility] Department [place] [address] * Differential, auto (01/31/2025 9:40 AM CDT) Neutrophil abs 4.06 1.50 - 6.50 K/cumm Imm gran abs 0.02 0.00 - 0.10 K/cumm [facility] ([place]) Lymphocyte abs 1.93 0.80 - 3.30 K/cumm [facility] ([place]) Monocyte abs 0.73 0.20 - 0.80 K/cumm [facility] ([place]) Eosinophil abs 0.21 0.00 - 0.50 K/cumm [facility] ([place]) Basophil abs 0.04 0.00 - 0.10 K/cumm [facility] ([place]) Neutrophil pct 58.1 % [facility] ([place]) Comment: Interpretive Data Percent cell count reference ranges are not reported, since discordance with absolute values may lead to misinterpretation of CBC data. Current Interpretive Data was last revised on 2018. Imm gran pct 0.3 % [facility] ([place]) Comment: Interpretive Data Percent cell count reference ranges are not reported, since discordance with absolute values may lead to misinterpretation of CBC data. Current Interpretive Data was last revised on 2018. Lymphocyte pct 27.6 % [facility] ([place]) Comment: Interpretive Data Percent cell count reference ranges are not reported, since discordance with absolute values may lead to misinterpretation of CBC data. Current Interpretive Data was last revised on 2018. Monocyte pct 10.4 % [facility] ([place]) Comment: Interpretive Data Percent cell count reference ranges are not reported, since discordance with absolute values may lead to misinterpretation of CBC data. Current Interpretive Data was last revised on 2018. Eosinophil pct 3.0 % [facility] ([place]) Comment: Interpretive Data Percent cell count reference ranges are not reported, since discordance with absolute values may lead to misinterpretation of CBC data. Current Interpretive Data was last revised on 2018. Basophil pct 0.6 % [facility] ([place]) Comment: Interpretive Data Percent cell count reference ranges are not reported, since discordance with absolute values may lead to misinterpretation of CBC data. Current Interpretive Data was last revised on 2018. Blood 01/31/2025 9:40 AM CDT 01/31/2025 1:27 PM CDT us Guillermo Perez HRBP LAB BLOOD ORDERABLE S Final Result [facility] ([place]) 1 [facility] Department [place] [address] * (ABNORMAL) Iron profile w/ IBC (01/31/2025 9:40 AM CDT) Pathologist [facility] Iron 102 50 - 150 mcg/dL TIBC 216(L) 250 - 400 mcg/dL [facility] ([place]) Transferrin saturation 47 20 - 50 % [facility] ([place]) Blood 01/31/2025 9:40 AM CDT 01/31/2025 1:27 PM CDT us Guillermo Perez HRBP LAB BLOOD ORDERABLE S Final Result JAYCOB ROBERTSON ([place]) 1 [facility] Department [place] [address] * (ABNORMAL) CBC with auto differential (01/31/2025 9:40 AM CDT) [facility] WBC 6.99 3.80 - 9.90 K/cumm Hgb 14.7 13.0 - 17.5 g/dL [facility] ([place]) Hct 43.8 38.9 - 50.3 % [facility] ([place]) Plt 210 150 - 400 K/cumm [facility] ([place]) MPV 10.7 9.1 - 12.3 fL [facility] ([place]) RBC 4.07(L) 4.30 - 5.80 M/cumm [facility] ([place]) MCV 107.6(H) 81.3 - 96.4 fL [facility] ([place]) MCH 36.1(H) 27.1 - 33.3 pg [facility] ([place]) MCHC 33.6 32.3 - 35.7 g/dL [facility] ([place]) RDW CV 13.4 11.1 - 14.9 % [facility] ([place]) RDW SD 53.2(H) 35.7 - 48.1 fL [facility] ([place]) NRBC abs 0.00 0.00 - 0.01 K/cumm [facility] ([place]) Blood 01/31/2025 9:40 AM CDT 01/31/2025 1:27 PM CDT Guillermolorena Sims Ana HRBP LAB BLOOD ORDERABLE S Final Result JAYCOB MARCELO ([place]) 1 [facility] Department [place] [address] * Hemochromatosis HFE Gene Analysis (01/31/2025 9:40 AM CDT) HFE Genotype H63D Heterozygous [facility] Comment:Testing performed by : [facility], [address] [place]., [address] HFE p.C282Y Negative JAYCOB KELLY ([place]) Comment:Testing performed by : [facility], [address] [place]., [address] HFE p.H63D Heterozygous [facility]CO[facility] ROBERTSON ([place]) Comment:Testing performed by : [facility], [address] [place]., [address] HFE Interpretation This genotype is associated with carrier status of hereditary hemochromatosis (HH); however, it does not exclude the diagnosis of HH. Approximately 4% of Caucasians with HH in [place] have this genotype. The frequency in other ethnicities may vary. This genotype is also found in approximately 23% of the general population in [place]. There is currently no definitive clinical evidence to support an increased risk of iron overload with this result. Some individuals who are heterozygous for HFE p. H63D have elevated serum transferrin saturation and ferritin concentrations, but they do not develop complications of iron overload. Correlation of clinical findings and family history with genotype results is recommended for establishing a diagnosis of HH. HH is an autosomal recessive disorder of iron metabolism that results in iron overload and potential organ failure. It is one of the most common genetic disorders in individuals of - ancestry, with an estimated carrier frequency of 10%. HH is associated with variants in the HFE gene. Most individuals with HH (60-90%) are homozygous for the p.C282Y variant. A smaller percentage of affected individuals are either compound heterozygous for the p.C282Y and p.H63D variants (3%-8%), or homozygous for the p.H63D variant (2%). Genetic counseling is recommended for discussion of the clinical implications of this result. JAYCOB GARNETT) Comment:Testing performed by : [facility], [address] [place]., [address] HFE Specimen Whole Blood MARTITA ROBERTSON ([place]) Comment:Testing performed by : [facility], [address] [place]., [address] HFE Result Review Final report reviewed by: Edel Martin Business Office Representative, on 02/04/2025 12:19:22 CDT. JAYCOB ROBERTSON ([place]) Comment: Interpretive Data Method: This assay detects the two variants in the HFE gene, p.C282Y ([id number]: c.845G>A) and p.H63D ([id number]: c.187C>G), that are commonly associated with HH. The variants are detected by a multiplex PCR based assay performed on the [employer] Fast Dx Real-Time PCR instrument. Limitations: Bone Marrow transplants from allogenic donors may interfere with interpretation of test results. Alternative specimen types including cultured fibroblasts may be necessary for accurate testing results. This assay does not rule out the presence of other disease-causing mutations in the HFE gene or in other genes associated with HH. Since genetic variation and additional factors can affect the accuracy of genotyping, these results should be interpreted in the context of clinical findings, family history, and other laboratory testing (e.g. serum transferrin-iron saturation and serum ferritin). This test was developed and its performance characteristics determined by the [facility] Diagn[facility] Laboratory at [facility] in a manner consistent with CLIA requirements. This test has not been cleared or approved by the U.S. Food and Drug Administration. References: Brijesh KJ, Mirella LC, Don CC, et al. Kuyx-ekfowcia-qtnpiey disease in HFE hereditary hemochromatosis. N Engl J Med. 2008;358:221 3 0. Александр BR, Jose PC, Ligia KV, et al. Diagnosis and management of hemochromatosis: 2011 practice guideline by the [place] Association for the Study of Liver Diseases. Hepatology. 2011;54:328 4 3. Giron SUNDAY, Nicholas CQ, Katy RT. HFE gene: structure, function, mutations, and associated iron abnormalities. Gene. 2015;574:179 9 2. Leatha MACIAS, Nahum GRAHAM, Earlene ANTUNEZ, et al. Clinical and biochemical abnormalities in people heterozygous for hemochromatosis. N Engl J Med. 1996;335:1799 8 05. Erick PA, David LW, Teddy DJ, Gagan Tim D, Bing E, Mandi NullK. A population- based study of the biochemical and clinical expression of the H63D hemochromatosis mutation. Gastroenterology. 2002;122:646 5 1. Mirella LC, Holly NA, Bret GW, et al. HFE C282Y/H63D compound heterozygotes are at low risk of hemochromatosis-related morbidity. Hepatology. 2009;50:94 1 01. Jemal KHALIL, Gladis G, David W. HFE gene and hereditary hemochromatosis: a HuGE review. Human Genome Epidemiology. Am J Epidemiol. 2001 Aug ; 154(3):193-206. Dimas A, Geoffrey C, Rick L, et al. Two novel nonsense mutations of HFE gene in five unrelated [place] patients with hemochromatosis. Gastroenterology. 2000;119:441 5 . Kirsten EP, Karly BA, Nguyen EL, et al. Screening for hereditary hemochromatosis: a systematic review for the U.S. Preventive Services Task Force. April Senior J2Ee Developer Med. 2006;145:209 2 3. This test was performed at: [facility], [facility]#[id number], April Davies, Ph.D., [place], [address], [place] Current interpretive data was last revised 2021. Testing performed by: [facility], [address] [facility], [place]., [address] Blood 01/31/2025 9:40 AM CDT 01/31/2025 6:58 PM CDT [facility] [place] [place] HRBP LAB GENETIC TESTING Final Result JAYCOB ROBERTSON ([place]) 1 [facility] Department [place] [address] [facility] * (ABNORMAL) Ferritin (01/31/2025 9:40 AM CDT) Ferritin 552(H) 30 - 400 ng/mL Blood 01/31/2025 9:40 AM CDT 01/31/2025 1:27 PM CDT [facility] S Final Result Performing Organization Address City/[facility] Co de Phone Number JAYCOB ROBERTSON ([place]) 1 [facility] Department of [employer] [place] [address] * (ABNORMAL) Comprehensive metabolic panel (01/31/2025 9:40 AM CDT) Pathologist [facility] Sodium 138 135 - 145 mmol/L Potassium, pl 5.1(H) 3.3 - 4.9 mmol/L [facility] ([place]) Chloride 101 97 - 110 mmol/L [facility] ([place]) CO2 27 22 - 32 mmol/L [facility] ([place]) Anion gap 11 2 - 15 mmol/L [facility] ([place]) BUN 10 6 - 25 mg/dL [facility] ([place]) Creatinine 0.89 0.80 - 1.30 mg/dL [facility] ([place]) Glucose 90 70 - 199 mg/dL [facility] ([place]) Comment: Interpretive Data Fasting glucose >/= 126 mg/dl is diagnostic for diabetes. Fasting is defined as no caloric intake for at least 8 hours. Fasting glucose between 100 mg/dl to 125 mg/dl is diagnostic of prediabetes. In a patient with classic symptoms of hyperglycemia or hyperglycemic crisis, a random glucose >/= 200 mg/dl is diagnostic for diabetes. In the absence of unequivocal hyperglycemia, results should be confirmed by repeat testing. The classification and Diagnosis of Diabetes Diabetes Care 2021; 46: S19-S40. Current interpretive data was last revised 2022. Calcium 8.9 8.5 - 10.3 mg/dL [facility] ([place]) Bilirubin, total 0.4 0.1 - 1.2 mg/dL [facility] ([place]) Protein, pl 6.5 6.5 - 8.5 g/dL [facility] ([place]) Albumin 3.7 3.5 - 5.0 g/dL [facility] ([place]) Alk phos 46 40 - 130 Units/L [facility] ([place]) ALT 19 7 - 55 Units/L [facility] ([place]) AST 31 10 - 50 Units/L [facility] ([place]) Comment:Slightly Hemolyzed S pecimen Blood 01/31/2025 9:40 AM CDT 01/31/2025 1:27 PM CDT Guillermo Perez HRBP LAB BLOOD ORDERABLE S Final Result Performing Organization Address City/State/[facility] Co de Phone Number [facility] ([place]) 1 [facility] Department of Laboratories [place], [place] [id number] from Last 3 Months Insurance [facility] MED[facility] Address: [facility] [address] [place] [address] [facility] MEDIC[facility] [employer] [facility] Address: [address] [address] [place] [address] [facility] MED[facility] [facility] Address: [address] [address] [place] [address] Advance Directives For more information, please contact: [phone] * Full Code (Latest Code Status on File) Date Activated Date Inactivated Comments 06/10/2019 7:48 AM 06/10/2019 1:14 PM * Full Code Date Activated Date Inactivated Comments 06/10/2019 7:48 AM 06/10/2019 7:48 AM Care Teams Weight Caller Relationship Specialty Start Date End Date Lianne Dinero MD [address] [place] [address] PCP - General 12/25/07
--- OUTSIDE RECORDS SUMMARY | 2025-03-07 07:27 | XMS_ITS | Encounter Summary ---
Author Organization [facility] Healthcare Address [address] [place] [address] Care Team Providers Care Technical Sourcing Recruiter Name Role Phone Lianne Dinero MD Primary Care Provider [phone] Encounter Details Date Type Department Care Team (Latest Contact Info) Description 02/08/2025 Results Follow-Up [facility] Gastroenterology at [address] [place] [address] Guillermo Perez NP [address] [place] [address] [address] [place] [address] Comprehensive metabolic panel, CBC with auto differential, Iron profile w/ IBC, Additional followed-up results: 4 Social History Tobacco Use Types Packs/Day Years Used Date Smoking Tobacco: Light Smoker Cigars Smokeless Tobacco: Current Chew Comments:cigars AUDIT-C Answer Date Recorded Q1: How [...] on file 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 Not a big concern, but make sure you are not eating a lot of high potassium foods or drinking a lot of high potassium beverages. Iron profile looks good. Ferritin mildly elevated, but improving. Blood counts overall look good. You do appear to be a carrier of the hemochromatosis gene which makes you more prone to maintaining too high of iron levels, but it means that you are just a carrier and do not actually have the condition. I recommend you talk to your family about them getting tested by their PCP for hemochromatosis because if a person gets one gene from each parent they are more likely to have and express the condition. Avoid iron supplementation. Please review the following handout if you desire to learn more about your carrier status: https://www.haemochromatosis.org.uk/s62k-clqoorm-mtxf-fmbdk-ur-x12t-yhwckhmdzcac Sincerely, RADHA Luevano documented in this encounter Plan of Treatment Upcoming Encounters Date Type Department Care Team (Late st Contact Info) Description 03/30/2025 7:30 AM CDT Hospital Encounter [address] [address] John Valdovinos DO [address] [facility] [address] CARL [address] [place] [address] 03/30/2025 7:30 AM CDT - 03/30/2025 8:00 AM CDT Surgery [address] [address] John Valdovinos DO [address] [facility] [address] [place] [address] COLONOSCOPY Scheduled Procedures Name Priority Associated Diagnoses Date/Ti me COLONOSCOPY Collagenous colitis 03/30/2025 7:30 AM CDT documented as of this encounter Visit Diagnoses Not on filedocumented in this encounter Care Teams Technical Sourcing Recruiter Relationship Specialty Start Date End Date Lianne Dinero MD [address] [place] [address] PCP - General 12/25/07 documented as of this encounter
--- OUTSIDE RECORDS SUMMARY | 2025-03-07 07:27 | XMS_ITS | Clinical Summary ---
Author Organization [facility] Address [address] [place] [address] Care Team Providers Care Lime Spreader Name Role Phone Elian Souza MD Unavailable [phone] Source Comments [facility] [employer],non-owned Affiliates and Associated Physician Practices is amultiple site organization consisting of ambulatory clinics and hospital sitesin [place], [place], [place] and [place]. This disclosure is being madepursuant to the Care Everywhere program and may not contain all information available regarding this patient. Last updated 18.[facility] [employer] Allergies No known active allergies Medications * Be aware that medications may not be up to date on this document. Alwaysverify current medications with the patient. metoprolol tartrate IR (LOPRESSOR) 25 MG tablet Take 25 mg by mouth once daily. Active losartan - hydrochlorothiazide (HYZAAR) 50-12.5 MG tablet Take 0.5 Tabs by mouth once daily. Active cetirizine (ZYRTEC ALLERGY) 10 MG gel capsule Take 10 mg by mouth once daily. Active multivitamin daily (THERAGRAN) tablet Take 1 Tab by mouth daily with food. Active Cyanocobalamin (VITAMIN B-12 PO) Take 2,000 mg by mouth once daily. Active hydrocodone-acetaminop hen (NORCO) 5-325 MG tablet Take 1-2 Tabs by mouth every 6 hours as needed. Called to [facility] [phone] 50 Tab 1 12/02/19 14 Active celecoxib (CELEBREX) 200 MG capsule Take 1 Cap by mouth 2 times daily. Called to [facility] [phone] 60 Cap 0 12/03/19 14 Active amoxicillin (AMOXIL) 500 MG capsule TAKE FOUR CAPSULES 1 HOUR BEFORE DENTAL APPOINTMENT 12 Cap 0 12/02/19 15 Active Active Problems Problem Noted Date Diagnosed Date Knee joint replacement by other means 12/21/2013 Osteoarthrosis involving lower leg 08/24/2013 Overview (12/23/2015): 2015 IMO Updt Social History Tobacco Use Types Packs/Day Years Used Date Smoking Tobacco: Some Days Cigars Tobacco Cessation:Ready to Q uit: No; Counseling Given: Yes Alcohol Use Standard Drinks/Week Comments Yes 0 (1 standard drink = 0.6 oz pur e alcohol) Sex and Gender Information Value Date Recorded Sex Assigned at Not on file Legal Sex Male 2:27 PM CDT Gender Identity Not on file Sexual Orientation Not on file Last Filed Vital Signs Vital Sign Reading Time Taken Comments Blood Pressure 136/84 12/02/2013 9:55 AM DIRECTOR OF MOBILE MARKETING Pulse 83 12/02/2013 9:55 AM DIRECTOR OF MOBILE MARKETING Temperature 36.2 C (97.2 F) 12/02/2013 9:55 AM DIRECTOR OF MOBILE MARKETING Respiratory Rate 16 12/02/2013 9:55 AM DIRECTOR OF MOBILE MARKETING Oxygen Saturation 98% 12/02/2013 9:55 AM DIRECTOR OF MOBILE MARKETING Inhaled Oxygen Concentration - - Weight 95.9 kg (211 lb 6.7 oz) 11/29/2013 9:12 A M DIRECTOR OF MOBILE MARKETING Height 175.3 cm (5' 9) 11/29/2013 9:12 AM DIRECTOR OF MOBILE MARKETING Body Mass Index 31.22 11/29/2013 9:12 AM DIRECTOR OF MOBILE MARKETING Plan of Treatment Health Maintenance Due Date Last Done Comments MEDICARE AWV 12 MONTHS 1943 DTAP/TDAP/TD VACCINES (1 - Tdap) 1962 PNEUMOCOCCAL VACCINE 50+ (1 of 2 - PCV) 1962 ZOSTER VACCINE (1 of 2) 1993 Respiratory Syncytial Virus (RSV) Vaccine Pt: or over 60 yrs (1 - 1-dose 75+ series) 2018 COVID-19 VACCINE ( - 2023-2 5 season) 2024 DEPRESSION SCREENING 09/29/2024 INFLUENZA VACCINE (Season Ended) 2025 HEPATITIS B VACCINE Aged Out No longe r eligible based on patient's age to complete this topic HIB VACCINE Aged Out No longer eligi ble based on patient's age to complete this topic HPV VACCINE Aged Out No longer eligi ble based on patient's age to complete this topic MENINGOCOCCAL (Group B) VACC INE SHARED DECISION-MAKING Aged Out No longer eligibl e based on patient's age to complete this topic MENINGOCOCCAL GROUPS A/C/Y/W VACCINE Aged Out No longer eligible b ased on patient's age to complete this topic Medical Devices Implanted Type Area Manufacturing Management Associate Device Identifier Shelf Expiration Date Model / Serial / Lot Carmelo Bone [place] Hv Implanted:Qty: 1 on 11/29/2013 by Elian Souza MD at [facility] Right: [employer] 06/28/2015 [id number] / / [id number] Ty Tibial I Beam Fix Bar 83mm Implanted:Qty: 1 on 11/29/2013 by Elian Souza MD at [facility] Right: [employer] 04/28/2023 [id number] / / [id number] Ins Kn Vangurd Fem Cocr R-Intlok 70mm Implanted:Qty: 1 on 11/29/2013 by Elian Souza MD at [facility] Right: [employer] 08/28/2023 [id number] / / [id number] Butn Pat Arcom Wire Polyeth Sm 31 X 8mm Implanted:Qty: 1 on 11/29/2013 by Elian Souza MD at [facility] Right: [employer] 09/28/2018 [id number] / / [id number] Implt Brdg Tib Ant Stblzd 10mm X 83mm Implanted:Qty: 1 on 11/29/2013 by Elian Souza MD at [facility] Right: [employer] 07/29/2017 [id number] / / [id number] Insurance MEDICARE [facility] UHC MANAGED MEDICARE ADV MEDICARE SELF PAY NO INSURANCE Member Subscriber Plan / Payer (Ef fective for All Dates) Name:Christopher Hogue Member ID:Not on file Relation to Subscriber:Not on file Name:CHRISTOPHER HOGUE Subscriber ID:Not on file (Home) Address: [address] [place] [address] Payer ID:Not on file Group ID:Not on file Type:Self Pay Address: [place], [place] UHC MANAGED MEDICARE ADV SELF PAY NO INSURANCE Member Subscriber Plan / Payer (Ef fective for All Dates) Name:LennieChristopher serrano Member ID:Not on file Relation to Subscriber:Not on file Name:CHRISTOPHER HOGUE Subscriber ID:Not on file (Home) Address: [address] [place] [address] Payer ID:Not on file Group ID:Not on file Type:Self Pay Address: [place], [place] UHC MANAGED MEDICARE [place] [address] SELF PAY NO INSURANCE Member Subscriber Plan / Payer (Ef fective for All Dates) Name:Christopher Hogue Member ID:Not on file Relation to Subscriber:Not on file Name:CHRISTOPHER HOGUE Subscriber ID:Not on file (Home) Address: [address] [place] [address] Payer ID:Not on file Group ID:Not on file Type:Self Pay Address: [place], [place] UHC MANAGED MEDICARE ADV Advance Directives * Full Code (Latest Code Status on File) Date Activated Date Inactivated Comments 11/29/2013 3:57 PM 12/02/2013 11:37 AM Care Teams Lime Spreader Relationship Specialty [place] [address] [place] [id number] Orthopedic Surgery 08/24/13
--- OUTSIDE RECORDS SUMMARY | 2025-03-07 07:27 | XMS_ITS | Encounter Summary ---
Author Organization [facility] Address [address] [place] [address] Care Team Providers Care Academy Director Name Role Phone Elian Souza MD Unavailable [phone] Encounter Details Date Type Department Care Team (Late st Contact Info) Description 12/20/2013 Therapy Visit [facility] Orthopedics [address] [facility] [address] [place] [address] [place] [address] [address] [facility] [address] [place] [address] Social History Tobacco Use Types Packs/Day Years Used Date Smoking Tobacco: Some Days Cigars Alcohol Use Standard Drinks/Week Comments Yes 0 (1 standard drink = 0.6 oz pur e alcohol) Sex and Gender Information Value Date Recorded Sex Assigned at Not on file Legal Sex Male 2:27 PM CDT Gender Identity Not on file Sexual Orientation Not on file documented as of this encounter Functional Status * Is person deaf or have serious hearing difficulty? Answer Date of Assessment Author No 12/02/2013 10:07 AM MARY KATE Tiwari Minerva martin Faith RN * Is person blind or have serious difficulty seeing? Answer Date of Assessment Author No 12/02/2013 10:07 AM MARY KATE Tiwari Minerva martin Faith RN * Does person have serious difficulty walking/climbing stairs? Answer Date of Assessment Author No 12/02/2013 10:07 AM MARY KATE Tiwari Minerva martin Faith RN * Does person have difficulty dressing/bathing? Answer Date of Assessment Author No 12/02/2013 10:07 AM MARY KATE Tiwari Minerva martin Faith RN * Does person have difficulty doing errands alone? Answer Date of Assessment Author No 12/02/2013 10:07 AM Minerva Finn RN documented as of this encounter Mental Status * Does person have difficulty concentrating/remembering/making decisions? Answer Entry Date Author No 12/02/2013 10:07 AM Minerva Finn RN documented in this encounter Plan of Treatment Not on file documented as of this encounter Visit Diagnoses Not on filedocumented in this encounter Care Teams Academy Director Relationship Specialty [place] [address] [place] [address] Orthopedic Surgery 08/24/13 documented as of this encounter
--- OUTSIDE RECORDS SUMMARY | 2025-03-07 07:27 | XMS_ITS | Referral Summary ---
Author Organization [facility] Address [address] [place] [address] Care Team Providers Care Equipment Mechanic Name Role Phone Lianne Dinero MD Primary Care Provider [phone] Encounters Date Type Department Care Team Description 02/15/2025 Telephone [facility] Gastroenterology at [address], [place] [phone] Martha Thomson Prep Instructions 02/11/2025 Telephone [facility] Gastroenterology at [address] [place] [phone] Kim Cabral LPN 02/08/2025 Results Follow-Up [facility] Gastroenterology at [address], [place] [phone] Guillermo Perez NP Comprehensive metabolic panel, CBC with auto differential, Iron profile w/ IBC, Additional followed-up results: 4 02/04/2025 12:19 PM CDT - 02/04/2025 11:59 PM CD[place] [address] Discharge Disposition: Discharge to home or self care 01/31/2025 10:00 AM CDT Lab [address] Hepatic fibrosis; Alcoholic liver disease; Elevated ferritin 01/31/2025 9:30 AM CDT Office Visit [facility] Gastroenterology at [address] [place] [phone] Guillermo Perez NP Chronic diarrhea (Primary Dx); Collagenous colitis; Hepatic fibrosis; Alcoholic liver disease; Tubular adenoma of colon; Tobacco use disorder; Elevated ferritin; Vitamin A deficiency from Last 3 Months Allergies No known active allergies Medications losartan [...] (03/25/2022): Added automatically from request for surgery [id number] Esophageal dysphagia 04/27/2019 Overview (04/27/2019): Added automatically from request for surgery [id number] Cervical radiculopathy 12/11/2012 Cervicalgia 12/09/2012 Skin neoplasm 07/19/2010 Social History Tobacco Use Types Packs/Day Years [...] on file Legal Sex Male 6:48 PM FERRY PILOT Gender Identity Not on file Sexual Orientation Not on file Last Filed Vital Signs Vital Sign Reading Time Taken Comments Blood Pressure 140/83 01/31/2025 9:12 AM CDT Pulse 70 01/31/2025 9:12 AM CDT Temperature 36.8 C (98.3 F) 06/10/2019 7:48 AM CDT Respiratory Rate 16 08/27/2022 1:07 PM FERRY PILOT Oxygen Saturation 98% 01/31/2025 9:12 AM CDT Inhaled Oxygen Concentration - - Weight 90 kg (198 lb 8 oz) 01/31/2025 9:12 AM CD T Height 172.7 cm (5' 8) 01/31/2025 9:12 AM CDT Body Mass Index 30.18 01/31/2025 9:12 AM CDT Plan of Treatment Upcoming Encounters Date Type Department Care Team (Late st Contact Info) Description 03/30/2025 7:30 AM CDT Hospital Encounter [address] [address] oJhn Valdovinos DO [address] [facility] [address] [place] [address] 03/30/2025 7:30 AM CDT - 03/30/2025 8:00 AM CDT Surgery [address] [address] John Valdovinos DO [address] [facility] [address] [place] [address] COLONOSCOPY Scheduled Procedures Name Priority Associated Diagnoses Date/Ti me COLONOSCOPY Collagenous colitis 03/30/2025 7:30 AM CDT Procedures Procedure Name Priority Date/Time Associated Diagnosis [...] CDT 01/31/2025 1:27 PM CDT us Guillermo Sims Ana EMT/PARAMEDIC LAB BLOOD ORDERABLE S Final Result [facility] ROBERTSON ([place]) 1 [facility] [place] [address] * Differential, auto (01/31/2025 9:40 AM CDT) Neutrophil abs 4.06 1.50 - 6.50 K/cumm Imm gran abs 0.02 0.00 - 0.10 K/cumm [facility] ([place]) Lymphocyte abs 1.93 0.80 - 3.30 K/cumm [facility] ([place]) Monocyte abs 0.73 0.20 - 0.80 K/cumm [facility] ([place]) Eosinophil abs 0.21 0.00 - 0.50 K/cumm [facility] ([place]) Basophil abs 0.04 0.00 - 0.10 K/cumm [...] revised on 2018. Basophil pct 0.6 % [facility] ([place]) Comment: Interpretive Data Percent cell count reference ranges are not reported, since discordance with absolute values may lead to misinterpretation of CBC data. Current Interpretive Data was last revised on 2018. Blood 01/31/2025 9:40 AM CDT 01/31/2025 1:27 PM CDT [facility] BLOOD ORDERABLE S Final Result Performing Organization Address City/[facility]/ZIP Co de Phone Number JAYCOB ROBERTSON ([place]) 1 [facility] [place] [address] * (ABNORMAL) Iron profile w/ IBC (01/31/2025 9:40 AM CDT) Iron 102 50 - 150 mcg/dL TIBC 216(L) 250 - 400 mcg/dL [facility] ([place]) Transferrin saturation 47 20 - 50 % [facility] ([place]) Blood 01/31/2025 9:40 AM CDT 01/31/2025 1:27 PM CDT [facility] BLOOD ORDERABLE S Final Result JAYCO[facility] ROBERTSON ([place]) 1 [facility] [place] [address] * (ABNORMAL) CBC with auto differential (01/31/2025 9:40 AM CDT) WBC 6.99 3.80 - 9.90 K/cumm Hgb 14.7 13.0 - 17.5 g/dL [facility] ([place]) Hct 43.8 38.9 - 50.3 % [facility] ([place]) Plt 210 150 - 400 K/cumm [facility] ([place]) MPV 10.7 9.1 - 12.3 fL [facility] ([place]) RBC 4.07(L) 4.30 - 5.80 M/cumm [facility] ([place]) MCV 107.6(H) 81.3 - 96.4 fL [facility] ([place]) MCH 36.1(H) 27.1 - 33.3 pg [facility] ([place]) MCHC 33.6 32.3 - 35.7 g/dL [facility] ([place]) RDW CV 13.4 11.1 - 14.9 % [facility] ([place] RDW SD 53.2(H) 35.7 - 48.1 fL [facility] ([place]) NRBC abs 0.00 0.00 - 0.01 K/cumm [facility] ([place]) Blood 01/31/2025 9:40 AM CDT 01/31/2025 1:27 PM CDT Guillermo Perez EMT/PARAMEDIC LAB BLOOD ORDERABLE S Final Result [facility] ([place]) 1 [facility] Department [place] [address] * Hemochromatosis HFE Gene Analysis (01/31/2025 9:40 AM CDT) HFE Genotype H63D Heterozygous [facility] Comment:Testing performed by : [facility], [address] [place] [address], [place]., [address] HFE p.C282Y Negative JAYCOB Bedoya ([place]) Comment:Testing performed by : [facility], [address] [facility]., [address] HFE p.H63D Heterozygous [facility] ([place]) Comment:Testing performed by : [facility], [address] [place] [address], [place]., [address] HFE Interpretation This genotype is associated with [...] result. JAYCOB GARNETT) Comment:Testing performed by : [facility], [address] [place]., [address] HFE Specimen Whole Blood MARTITA ROBERTSON ([place]) Comment:Testing performed by : [facility], [address] [place]., [address] HFE Result Review Final report reviewed by: Edel Martin Lining Maker, on 02/04/2025 12:19:22 CDT. JAYCOB GARNETT) Comment: Interpretive Data Method: This assay detects the two variants in the HFE gene, p.C282Y (NM_000410.2: c.845G>A) and p.H63D (NM_000410.2: c.187C>G), that are commonly associated with HH. The variants are detected by a multiplex PCR based assay performed on the [employer] Fast Dx Real-Time PCR instrument. Limitations: Bone [...] determined by the Molecular Diagnostics Laboratory at [facility] in a manner consistent with CLIA requirements. This test has not been cleared or approved by the U.S. Food and Drug Administration. References: Brijesh KJ, Mirella EDWARDS, Don CC, et al. Fuhx-linrmphh-euysryd disease in HFE hereditary hemochromatosis. N Engl J Med. 2008;358:221 3 0. Александр BR, Jose PC, Ligia KV, et al. Diagnosis and management of hemochromatosis: 2011 practice guideline by the [place] Association for the Study of Liver Diseases. Hepatology. 2011;54:328 4 3. Mack SUNDAY, Nicholas CQ, Katy RT. HFE gene: structure, function, mutations, and associated iron abnormalities. Gene. 2015;574:179 9 2. Leatha KnightJ, Nahum GRAHAM, Earlene ANTUNEZ, et al. Clinical and biochemical abnormalities in people heterozygous for hemochromatosis. N Engl J Med. 1996;335:1799 8 05. Erick PA, David LW, Teddy DJ, Gagan Tim D, Bing E, Mandi NullK. A population- based study of the biochemical and clinical expression of the H63D hemochromatosis mutation. Gastroenterology. 2002;122:646 5 1. Mirella EDWARDS, Holly NA, Bret MA, et al. HFE C282Y/H63D compound heterozygotes are at low risk of hemochromatosis-related morbidity. Hepatology. 2009;50:94 1 01. Jemal KHALIL, Gladis GDavid W. HFE gene and hereditary hemochromatosis: a HuGE review. Human Genome Epidemiology. Am J Epidemiol. 2001 Apr 29; 154(3):193-206. Dimas A, Geoffrey C, Rick L, et al. Two novel nonsense mutations of HFE gene in five unrelated [place] patients with hemochromatosis. Gastroenterology. 2000;119:441 5 . Kirsten EP, Karly BA, Nguyen EL, et al. Screening for hereditary hemochromatosis: a systematic review for the U.S. Preventive Services Task Force. April Senior Laboratory Technician Med. 2006;145:209 2 3. This test was performed at: [facility], [address] [facility] David, JAIMIE#[id number], April Davies, Ph.D., [place], [address], [place] Current interpretive data was last revised 2021. Testing performed by: [facility], [address] [facility], [place]., [address] Blood 01/31/2025 9:40 AM CDT 01/31/2025 6:58 PM CDT Guillermo Perez EMT/PARAMEDIC LAB GENETIC TESTING Final Result [facility] ([place]) 1 [facility] [place] [address] [facility] * (ABNORMAL) Ferritin (01/31/2025 9:40 AM CDT) Ferritin 552(H) 30 - 400 ng/mL Blood 01/31/2025 9:40 AM CDT 01/31/2025 1:27 PM CDT Guillermo Perez LAB BLOOD ORDERABLE S Final Result [facility] ([place]) 1 [facility] [place] [address] * (ABNORMAL) Comprehensive metabolic panel (01/31/2025 9:40 AM CDT) Sodium 138 135 - 145 mmol/L Potassium, [...] classification and Diagnosis of Diabetes Diabetes Care 202; 46: S19-S40. Current interpretive data was last revised 2022. Calcium 8.9 8.5 - 10.3 mg/dL [facility] ([place]) Bilirubin, total 0.4 0.1 - 1.2 mg/dL [facility] ([place]) Protein, pl 6.5 6.5 - 8.5 g/dL [facility] ([place]) Albumin 3.7 3.5 - 5.0 g/dL [facility] ([place]) Alk phos 46 40 - 130 Units/L [facility] ([place]) ALT 19 7 - 55 Units/L [facility] ([place]) AST 31 10 - 50 Units/L [facility] ([place]) Comment:Slightly Hemolyzed S pecimen Blood 01/31/2025 9:40 AM CDT 01/31/2025 1:27 PM CDT Guillermo Perez EMT/PARAMEDIC LAB BLOOD ORDERABLE S Final Result [facility] ([place]) 1 [facility] [place] [address] from Last 3 Months Insurance [facility] MEDICARE ADVANTAGE UHC MEDICARE ADVANTAGE Advance Directives For more information, please contact: [phone] * Full Code (Latest Code Status on File) Date Activated Date Inactivated Comments 06/10/2019 7:48 AM 06/10/2019 1:14 PM * Full Code Date Activated Date Inactivated Comments 06/10/2019 7:48 AM 06/10/2019 7:48 AM Care Teams Equipment Mechanic Relationship Specialty Start Date End Date Lianne Dinero MD [address] [place] [address] PCP - General 12/25/07
--- OUTSIDE RECORDS SUMMARY | 2025-03-07 07:27 | XMS_ITS | Continuity of Care Document ---
Author Organization [facility] [place] [address] [place] [address] Phone Care Team Providers Care Database Reporting Consultant Name Role Phone Kyler Servin MD Unavailable Unavailable Allergies, Adverse Reactions, Alerts Substance Reaction Status Criticality No Known Allergies Active No Inform ation Medications Medication Instructions Dosage Effective Dates (start - stop) Status Comments losartan 25 mg tablet take 1 tablet by o ral route every day 25 MG - Active multivitamin capsule take 1 capsule by o ral route every day - Active Zyrtec 10 mg tablet take 1 tablet (10MG) by oral route every day 10 MG - Active aspirin 81 mg tablet,delayed release take 1 tablet (81MG) by oral route every day 81 MG - Active metoprolol succinate ER 25 mg tablet,extended release 24 hr take 1 tablet (25MG) by oral route every day 25 MG - Active Procedures Procedure Date Eye Exam & Treatment Eye Exam, New Patient Advance Directives Directive Yes / No Effective Date File Name No Information Encounters Encounter Description Practice Location Reason(s) For Visit Diagnoses Date Provider Providers Copied on Encounter [facility], [address] [place] [address] [address], [place], [place], [id number], [place] tel:[phone] [place] Professional glare (chief complaint) ROSACEASENILE NUCLEAR CATARACTVITREO US DEGENERATIONIn fected cyst of meibomian gland 4 Gareth Chávez. [address] [facility], [place], [place], [address], [place]. tel:[phone] Referring Provider: Kyler Bedoya, [address] [facility], [place], [address] . tel:[phone] [facility], [address], [place], [place], [id number], tel:[phone] SEC [facility] No Information 4 Ingrid Epps. [address], [address], [place], [place], [address], [place]. tel:[phone] [facility], [address], [place], [place], [id number], tel:[phone] [place] Professional VITREOUS DEGENERATIONSE NILE NUCLEAR CATARACTROSACE A 3 Gareth Chávez. [address], [facility] [place], [id number], . tel:[phone] Referring Provider: Kyler Bedoya, [address] [facility], [place], [address] . tel:[phone] Family History Family Member Type Diagnosis Age At Onset No Information Payers Payer name Insurance type Covered constitution party ID Authoriza tion(s) [place] [id number] [facility] ([facility]) [id number] Social History Type Description Quantity Date Captured Comments Alcohol Use Details Unknown Caffeine Use Details Unknown Tobacco Use Status No Information Smoking Status No Information Sex Male Chief Complaint And Reason For Visit From encounter dated '08/24/2014 09:30'. glare (chief complaint). Description: Patient presents for a complete exam. Patient states glare isbothersome at night some. Reason For Referral Reason For Referral No Information History Of Present Illness Encounter Date Complaint History Of Prese nt Illness glare Patient presents for a complete exam. Patient states glare is bothersome at night some. Functional Status Date Functional Assessmen t No Information Instructions Date Instruction Additional Infor mation SENILE NUCLEAR CATAR ACT - Written educational material given. Related to SENILE NUCLEAR CATARACT - Cataract diagnosis discussed in detail with pt. Discussed r/b/a regarding cataracts sx. The patient will monitor vision changes and contact us with any decrease in vision. RTC in 1 year or sooner if va worsens. Related to See list of assessments above - Return in 1 year Related to Se e list of assessments above - prn Related to Vitre ous Detachment vit detachment - war carla symptoms tear/detach Related to Vitreous Detachment - 1yr Related to Catar act, Nuclear Sclerosis cataracts - no tx needed now Rel ated to Cataract, Nuclear Sclerosis rosacea without occu lar symptoms - no tx needed Related to Acne Rosacea Assessments Type Assessment Date assessment ROSACEA assessment SENILE NUCLEAR CATARACT 014 assessment VITREOUS DEGENERATION 4 assessment Infected cyst of meibomian gland Patient Care Teams Name Effective Dates (start - stop) Status Members No Information
[2025-03-07 07:36] LABS: Basophils Absolute Auto 0.03 K/mm3 (0.00-0.10); Basophils Percent Auto 0.4 % (0.0-1.0); Eosinophils Absolute Auto 0.25 K/mm3 (0.02-0.50); Eosinophils Percent Auto 3.1 % (1.0-6.0); Hematocrit 42.9 % (37.0-46.0); Hemoglobin 14.3 g/dL (12.4-15.3); Immature Granulocyte Absolute 0.02 K/mm3 (0.00-0.00); Immature Granulocyte Percent A 0.3 % (0.0-0.0); Lymphocytes Absolute Auto 2.22 K/mm3 (1.10-4.50); Lymphocytes Percent Auto 27.8 % (18.0-42.0); Mean Corpuscular HGB Conc 33.3 g/dL (32-36); Mean Corpuscular Hemoglobin 35.5 pg (27.0-31.0); Mean Corpuscular Volume 106.5 fL (78.0-102.0); Monocytes Absolute Auto 0.78 K/mm3 (0.10-0.90); Monocytes Percent Auto 9.8 % (2.0-11.0); Neutrophils Absolute Auto 4.68 K/mm3 (1.70-7.20); Neutrophils Percent Auto 58.6 % (50.0-70.0); Platelet Count Result 212 K/mm3 (150-420); Red Blood Count 4.03 M/mm3 (4.70-6.10); Red Cell Distribution Width 12.9 % (11.6-14.4)
[2025-03-07 07:37] LABS: Add Urine Microscopic? NO; Appearance Urine Clear (Clear); Bilirubin Urine Negative (Negative); Blood Urine Negative (Negative); Color Urine Yellow (Yellow); Glucose Urine UA Negative (Negative); Ketones Urine Negative (Negative); Leukocyte Esterase Ur Negative (Negative); Nitrate Urine Negative (Negative); Protein Urine Negative (Negative); Specific Grav Ur 1.025 (1.010-1.020); Urobilinogen Urine 0.2 mg/dL (0.2-1.0)
[2025-03-07 07:48] LABS: Hemoglobin A1C 5.1 % (<5.7)
[2025-03-07 08:40] LABS: Alanine Aminotransferase 20 U/L (6-50); Albumin Level 3.5 g/dL (3.5-5.1); Alkaline Phosphatase 35 U/L (38-126); Anion Gap 2 mmol/L (4-12); Aspartate Amino Transferase 32 U/L (17-59); Bilirubin,Total 0.7 mg/dL (0.2-1.3); Blood Urea Nitrogen 11 mg/dL (9-20); Calcium 8.6 mg/dL (8.4-10.2); Carbon Dioxide 29 mmol/L (22-30); Chloride 107 mmol/L (98-107); Cholesterol 146 mg/dL (0-200); Creatine Kinase 27 U/L (55-170); Estimated Glomerular Filt Rate > 60; Glucose 91 mg/dL (65-110); HDL Direct 39 mg/dL; Iron 108 ug/dL (49-181); LDL Cholesterol Calculated 92 mg/dL (<130); Osmolality Calculated 285 mOsm/kg (285-295); Potassium 4.5 mmol/L (3.4-5.0); Sodium 138 mmol/L (137-145); Total Protein 6.2 g/dL (6.3-8.2); Triglycerides 76 mg/dL (<150)
== END 2025-03-07 07:22 | disposition home or self-care (01) ==
LOC: CHSLAB 07:23
PROVIDERS: PCP Internal Medicine; Visit Provider Internal Medicine
DX: K74.60 Unspecified cirrhosis of liver (principal); I49.3 Ventricular premature depolarization; R73.01 Impaired fasting glucose; E53.8 Deficiency of other specified B group vitamins; D75.0 Familial erythrocytosis; Z13.6 Encounter for screening for cardiovascular disorders
CPT/HCPCS: 36415; 80053; 80061; 81003; 82550; 82607; 82728; 83036; 83540; 85025

== ENCOUNTER 2025-06-17 09:10 | Outpatient (CLI) | payer MEDICARE, SELFPAY ==
--- OUTSIDE RECORDS SUMMARY | 2025-06-17 09:16 | XMS_ITS | Clinical Summary ---
Author Organization [facility] Address [address] [place] [address] Care Team Providers Care Department Sales Manager Name Role Phone Lianne Dinero MD Primary Care Provider [phone] Allergies No known active allergies Medications losartan [...] (03/25/2022): Added automatically from request for surgery [id number] Esophageal dysphagia 04/27/2019 Overview (04/27/2019): Added automatically from request for surgery [id number] Cervical radiculopathy 12/11/2012 Cervicalgia 12/09/2012 Skin neoplasm 07/19/2010 Encounters Date Type Department Care Team Description 04/01/2025 Results Follow-Up [facility] Gastroenterology at [address] [place] [address] John Valdovinos, DO Surgical pathology 03/30/2025 7:37 AM CDT Anesthesia Event [address] [address] Bakari Clifford MD 03/30/2025 7:30 AM CDT - 03/30/2025 8:00 AM CDT Surgery [address] [address] John Valdovinos, DO COLON BIOPSY 03/30/2025 6:28 AM CDT - 03/30/2025 8:39 AM CDT Hospital Encounter [address] [address] John Valdovinos, DO Collagenous colitis Discharge Disposition: Discharge to home or self care from Last 3 Months Surgical History Surgery Date Site/Laterality Comments INGUINAL HERNIA REPAIR 09/29/2000 - 09/28/2001 COLONOSCOPY 11/19/2012 last screening , 03/2022 10 yr follow up ESOPHAGOGASTRODUODENOSCOPY TOTAL KNEE ARTHROPLASTY Right Medical History Medical History Date Comments GERD (gastroesophageal reflux disease) Collagenous colitis Esophageal stenosis HTN (hypertension) Vitamin D deficiency Tobacco abuse Adenomatous colon polyp Alcoholic cirrhosis (HCC) Social History Tobacco Use Types Packs/Day Years [...] staff should administer the PHQ-9) 0 10/03/2022 Personal Safety Answer Date Recorded Have you ever been in or are you currently in a harmful physical or emotional relationship or is someone making you feel afraid or unsafe? 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 Gender Identity Not on file Sexual Orientation Not on file Obstetrics History Last Filed Vital Signs Vital Sign Reading Time Taken Comments Blood Pressure 107/66 03/30/2025 8:26 AM CDT Pulse 60 03/30/2025 8:26 AM CDT Temperature 36.1 C (96.9 F) 03/30/2025 8:26 AM CDT Respiratory Rate 18 03/30/2025 8:26 AM CDT Oxygen Saturation 99% 03/30/2025 8:26 AM CDT Inhaled Oxygen Concentration - - Weight 86.2 kg (190 lb) 03/30/2025 7:12 AM CDT Height 170.2 cm (5' 7) 03/30/2025 7:12 AM CDT Body Mass Index 29.76 03/30/2025 7:12 AM CDT Plan of Treatment Health Maintenance Due Date Last Done Comments Hepatitis B Screening 1961 Abdominal Aortic Aneurysm (A AA) Screen 2008 Well Visit 65+ 2008 Pneumococcal vaccine 65+ (2 of 2 - PPSV23, PCV20, or PCV21) 08/26/2015 07/01/2015 Zoster Vaccine (2 of 2) 08/07/2018 06/12/2018 Depression Screening 10/03/2023 10/03/2022, 07/01/2022, 05/06/2022, Additional history exists DTaP/Tdap/Td Vaccine (2 - Td or Tdap) 04/22/2024 04/22/2014 Covid-19 Vaccine (4 - 2024-2 6 season) 2025 08/08/2021, 12/08/2020, 11/10/2020 Influenza Vaccine (#1) 2025 , 07/17/2018, 07/23/2017, Additional history exists Fall Risk Assessment 03/30/2026 03/30/2025 Procedures Procedure Name Priority Date/Time Associated Diagnosis Comments SURGICAL PATHOLOGY STAT 03/30/2025 11 :46 AM CDT Collagenous colitis COLON BIOPSY 03/30/2025 7:26 AM CDT Collagenous colitis COLONOSCOPY 03/30/2025 7:03 AM CDT from Last 3 Months Results * Surgical pathology (03/30/2025 11:46 AM CDT) Tissue (Polyp(s), colon/colorectal, esophageal, gastric) 03/30/2025 7:56 AM CDT Tissue specimen (specimen) (Colon, Biopsy) 03/30/2025 7:56 AM CDT Narrative PATHOLOGY [facility] - 03/31/2025 3:40 PM CDT EPIC results best viewed via link to PDF [facility] Department of Pathology [address] [place] [address] Note to Patients: This report may contain a detailed description of human tissue sent by a health care provider to the laboratory for pathologic evaluation. The content of this report is essential for diagnosis and may provide important critical findings. This information may be unfamiliar to patients to review without a medical professional present. It is advised that the patient review this report in the presence of a health care provider who can answer questions and explain the details. Final Report Patient Name: CHRISTOPHER HOGUE Address: [address] [place] [address]- Gender: M : 1945 (Age: 79) Service: Gastro Location: [facility] Hospital #: [id number] Patient Type: [facility] Taken: 03/30/2025 Received: 03/30/2025 Accessioned: 03/30/2025 Reported: 03/31/2025 Physician(s):Dr. John Valdovinos D.O. Diagnosis: A. Colon, transverse, biopsies: - Tubular adenomas. - Thickened subepithelial collagen, increased intraepithelial lymphocytes, and surface mucosal damage (see diagnosis comment). - No evidence of high-grade dysplasia or malignancy. B. Colon, random, biopsy: - Colonic mucosa with thickened subepithelial collagen layer, increased intraepithelial lymphocytes, and surface mucosal damage (see diagnosis comment). - No evidence of dysplasia or malignancy. Diagnosis Comment: The electronic medical record is reviewed and the patient's history of collagenous colitis is noted from a progress note dated 01/31/25. The current findings (demonstrated in both parts A and B) are compatible with microscopic/collagenous colitis. Thaddeus Navas MD Report Electronically Reviewed and Signed Out By Thaddeus Navas MD 03/31/2025 15:40:44 Specimen(s) Received: A: Transverse colon biopsy B: Random colon biopsy Microscopic Description: A. Microscopic examination of routine and numerous deeper levels shows two fragments of colonic mucosa with adenomatous mucosal changes. Also noted are thickened subepithelial collagen, increased intraepithelial lymphocytes, and surface mucosal damage; these latter findings are compatible with microscopic/collagenous colitis. The colonoscopy report is reviewed and the endoscopic impression of two transverse colon polyps as noted. The former findings are consistent with tubular adenomas. There is no evidence of high-grade dysplasia or malignancy. B. Microscopic examination shows fragments of colonic mucosa with a thickened subepithelial collagen layer in addition to increased intraepithelial lymphocytes. Surface mucosal damage is also noted. There is no evidence of dysplasia or malignancy. Clinical History: Collagenous colitis. Colonoscopy. Gross Description: The specimen is submitted in two formalin containers labeled CHRISTOPHER COPELANDEBEL. A. The first container is labeled transverse colon biopsy. It is 2 garg tissue fragments, each 2 mm. All in A. B. The second container is labeled random. It is 6 garg tissue fragments between 1 and 2 mm. All in B. [facility] P.A./Evelyn Palma M.D. REPORT IMAGES AND SCANNED DOCUMENTS, IF INCLUDED, ONLY VIEWABLE IN PDF VERSION OF REPORT The performance characteristics of some immunohistochemical stains, fluorescence in-situ hybridization tests and immunophenotyping by flow cytometry cited in this report (if any) were determined by the Surgical Pathology Department at [facility] as part of an ongoing quality systems technician program and in compliance with federally mandated regulations drawn from the Clinical Laboratory Improvement Act of 1988 (CLIA '88). Some of these tests rely on the use of analyte specific reagents and are subject to specific labeling requirements by the US Food and Drug Administration. Such diagnostic tests may only be performed in a facility that is certified by the Department of Health and Human Services as a [facility] under CLIA '88. The FDA has determined that such clearance or approval is not necessary. This test is used for clinical purposes. It should not be regarded as investigational or for research. Nevertheless, federal rules concerning the medical use of analyte specific reagents require that the following disclaimer be attached to the report: This test was developed and its performance characteristics determined by the Surgical Pathology Department [facility]. It has not been cleared or approved by the U. S. Food and Drug Administration. Note for decalcified specimens: This assay has not been validated on decalcified tissues. Results should be interpreted with caution given the possibility of false negativity on decalcified specimens us John Valdovinos DO LAB PATHOLOGY ORDERABLES Final Result PATHOLOGY [facility] [address] [place], [place] [id number] * Colonoscopy (03/30/2025 7:03 AM CDT) Anatomical Region Laterality Modality Other Narrative Procedure Note John Valdovinos, - 03/30/2025 7:03 AM CDT [facility] Patient Name: Christopher Hogue Procedure Date: 03/30/2025 7:03 AM Date of : 1945 Admit Type: Outpatient Age: 79 Gender: Male Attending MD: John Valdovinos , D.O. Room: [facility] ENDOSCOPY ROOM 3 Note Status: Finalized Patient Profile: Refer to note in patient chart for documentation of history and physical. Procedure: Colonoscopy Indications: High risk colon cancer surveillance: Personalhistory of colonic polyps, Last colonoscopy: March 2022 Referring MD: Lianne Dinero M.D. Providers: John Valdovinos D.O. Impression: - Diverticulosis in the left colon. Biopsied. - Two 2 to 3 mm polyps in the transverse colon, removed with a jumbo cold forceps. Resected and retrieved. - Internal hemorrhoids. Recommendation: - Discharge patient to home. - Resume previous diet. - Continue present medications. - Await pathology results. - Repeat colonoscopy is not recommended due tocurrent age (80 years or older) for surveillance based on clinical status at that time. - Return to GI office as previously scheduled. Return to your GI office as previously scheduled. Call 2 weeks for biopsy report. Benefiber or Metamucil daily. Cautious intake of dairy. Medicines: Monitored Anesthesia Care Complications: No immediate complications. Estimated Blood Loss: Estimated blood loss was minimal. Procedure: Pre-Anesthesia Assessment: - As per anesthesia. The benefits, risks and alternatives of theprocedure and sedation were discussed and informed consentwas obtained. All questions were answered. Please referto the signed informed consent document in the medical record. The bowel preparation used was Miralax via split dose instruction. The bowel preparation usedwas bisacodyl tablets via split dose instruction. The scope was passed under direct vision. TheColonoscope [id number] was introduced through the anus and advanced to the the cecum, identified by appendiceal orifice and ileocecal valve. The colonoscopy was performed without difficulty. The patient tolerated the procedure well. The qualityof the bowel preparation was adequate. Anatomical landmarks were photographed. Findings: The perianal and digital rectal examinations were normal. Multiple diverticula were found in the left colon. Biopsies for histology were taken with a cold forceps for evaluation ofmicroscopic colitis. Two hyperplastic polyps were found in the transverse colon. Thepolyps were 2 to 3 mm in size. These polyps were removed with a jumbo cold forceps. Resection and retrieval were complete. Internal hemorrhoids were found. The hemorrhoids were medium-sized. No additional abnormalities were found on retroflexion. Electronically signed by John Valdovinos M.D. John Valdovinos D.O. 03/30/2025 8:03:40 AM Number of Addenda: 0 Note Initiated On: 03/30/2025 7:03 AM Procedure Code(s): --- Professional --- 84700, Colonoscopy, flexible; with biopsy, single or multiple --- Technical --- 16156, Colonoscopy, flexible; with biopsy, single or multiple Diagnosis Code(s): --- Professional --- Z86.010, Personal history of colonic polyps K64.8, Other hemorrhoids D12.3, Benign neoplasm of transverse colon (hepatic flexure orsplenic flexure) K57.30, Diverticulosis of large intestine without perforation orabscess without bleeding --- Technical --- Z86.010, Personal history of colonic polyps K64.8, Other hemorrhoids D12.3, Benign neoplasm of transverse colon (hepatic flexure orsplenic flexure) K57.30, Diverticulosis of large intestine without perforation orabscess without bleeding CPT copyright 2020 [employer]. All rights reserved. The codes documented in this report are preliminary and upon vegetable tester reviewmay be revised to meet current compliance requirements. Recognized by the [place] [employer] for promoting quality in endoscopy John Valdovinos DO ENDOSCOPY PROCEDURES Final Res ult from Last 3 Months Insurance [facility] ADVANTAGE [facility] Address: [address] [address] [place] [address] [facility] Address: [address] [place] [address] [employer] MEDICARE ADVANTAGE [facility] Address: [address] [address] [place] [id number] Advance Directives For more information, please contact: [phone] * Full Code (Latest Code Status on File) Date Activated Date Inactivated Comments 03/30/2025 7:15 AM 03/30/2025 12:39 PM * Full Code Date Activated Date Inactivated Comments 03/30/2025 7:15 AM 03/30/2025 7:15 AM * Full Code Date Activated Date Inactivated Comments 06/10/2019 7:48 AM 06/10/2019 1:14 PM * Full Code Date Activated Date Inactivated Comments 06/10/2019 7:48 AM 06/10/2019 7:48 AM Care Teams Department Sales Manager Relationship Specialty Start Date End Date Lianne Dinero MD [address] [id number] PCP - General 12/25/07
--- OUTSIDE RECORDS SUMMARY | 2025-06-17 09:16 | XMS_ITS | Encounter Summary ---
Author Organization [facility] Address [address] [facility] [place] [address] Care Team Providers Care Cutting Machine Tender Decorative Name Role Phone Elian Souza MD Unavailable Encounter Details Date Type Department Care Team (Late st Contact Info) Description 12/20/2013 Therapy Visit [facility] Orthopedics [address] [facility] [address] [place] [address] [place] [address] [facility] [address] [place] [address] Social History Tobacco Use Types [...] on filedocumented in this encounter Care Teams Cutting Machine Tender Decorative Relationship Specialty [place] [address] [place] [address] Orthopedic Surgery 08/24/13 documented as of this encounter
--- OUTSIDE RECORDS SUMMARY | 2025-06-17 09:16 | XMS_ITS | Clinical Summary ---
Author Organization [facility] Address [address] [place] [address] Care Team Providers Care Seal Extrusion Operator Name Role Phone Lianne Dinero MD Primary Care Provider [phone] Khalif Chavez MD Unavailable [phone] Allergies No known active allergies Medications pantoprazole EC 40 MG tablet Take 1 tablet (40 mg total) by mouth daily. 08/18/2020 Active vitamin B-12 (CYANOCOBALAMIN ) 1000 mcg tablet Take 0.5 tablets (500 mcg total) by mouth daily. Active fluticasone propionate 50 MCG/ACT nasal spray 1 spray by Nasal route 2 (two) times a day. Active Cetirizine HCl 10 MG Cap Take 10 mg by mouth daily. Active losartan 25 MG tablet Take 1 tablet (25 mg total) by mouth daily. 30 tablet 12/04/2020 Active Calcium Carbonate-Vit D-Min (CALCIUM 1200 OR) Take 1 tablet by mouth daily. Active vitamin D3, cholecalciferol , 10 MCG (400 UNIT) tablet Take 1 tablet (400 Units total) by mouth daily. Active cholestyramine (QUESTRAN) 4 G packet 10/09/2023 Active loperamide (IMODIUM A-D) 2 MG tablet Take 1 tablet (2 mg total) by mouth as needed. Active prednisoLONE acetate (PRED FORTE) 1 % ophthalmic suspension 09/30/2023 Active budesonide EC (ENTOCORT EC) 3 MG capsule One time a week 08/27/2023 Active carvedilol (COREG) 3.125 MG tablet Take 1 tablet (3.125 mg total) by mouth 2 (two) times daily. 180 tablet 2 04/05/2025 Active Active Problems Problem Noted Date Diagnosed Date Hypertension 11/03/2020 Ventricular ectopy 11/03/2020 SVT (supraventricular tachycardia) ([facility]) 09/2006 Ascending aorta dilatation 09/29/2006 Encounters Date Type Department Care Team Description 04/19/2025 Telephone [facility] ld [address] [place] [id number] Khalif Chavez MD Appointment Request from Last 3 Months Family History Medical History Relation Comments Coronary artery disease Father Aneurysm Mother Hypertension Mother Stroke Mother Vision loss Mother Relation Status Comments Father Mother Social History Tobacco Use Types Packs/Day Years Used Date Smoking Tobacco: Some Days Cigars Smokeless Tobacco: Current Chew Tobacco Cessation:Ready to Q uit: Not Asked; Counseling Given: Not Answered Alcohol Use Standard Drinks/Week Comments Yes 1.7 (1 standard drink = 0.6 oz p ure alcohol) Sex and Gender Information Value Date Recorded Sex Assigned at Male 12/14/2024 10:36 AM CDT Legal Sex Male 10:24 PM CDT Gender Identity Not on file Sexual Orientation Not on file Last Filed Vital Signs Vital Sign Reading Time Taken Comments Blood Pressure 107/73 12/14/2024 11:32 AM CDT sotero givens recheck Pulse 72 12/14/2024 11:31 AM CDT Temperature - - Respiratory Rate 16 12/14/2024 11:31 AM CDT Oxygen Saturation 99% 12/14/2024 11:31 AM CDT Inhaled Oxygen Concentration - - Weight 89.4 kg (197 lb) 12/14/2024 11:31 AM CDT Height 170.2 cm (5' 7) 12/14/2024 11:31 AM CDT Body Mass Index 30.85 12/14/2024 11:31 AM CDT Plan of Treatment Upcoming Encounters Date Type Department Care Team ([facility] st Contact Info) Description 12/13/2025 10:30 AM CDT Office Visit [facility] eld [address] [place] [address] Khalif Chavez MD [address] [facility] [address] [place] [address] Health Maintenance Due Date Last Done Comments ASCVD Statin 1945 DTaP, Tdap and Td Vaccines ( 1 - Tdap) 1962 Annual Medicare Wellness Visit 2008 Pneumococcal Vaccine: 50+ Years (2 of 2 - PPSV23) 08/26/2015 07/01/2015 RSV Immunization or 60+ Years (1 - 1-dose 75+ series) 2018 Zoster Vaccines (2 of 2) 08/07/2018 06/12/2018 ASCVD LDL 03/15/2025 03/15/2024, 10/03/2020 COVID-19 Vaccine (1 - 2023-2 5 season) 2025 Meningococcal B Vaccine Aged Out No l onger eligible based on patient's age to complete this topic Meningococcal Vaccine Aged Out No ramone kisha eligible based on patient's age to complete this topic RSV Immunizations Under 20 Months Aged Out No longer eligible b ased on patient's age to complete this topic Procedures Procedure Name Priority Date/Time Associated Diagnosis Comments LIPID PANEL (OUTSIDE LAB) Routine 03/15/2024 from Last 3 Months or Most Recently Relevant to Health Maintenance Results * LIPID PANEL (OUTSIDE LAB) (03/15/2024) CHOLESTEROL 138 TRIGLYCERIDES 56 HDL 49 LDL (CALCULATED) 78 03/15/2024 us Default History Genericprovider LAB-OUTSIDE/ABST RACTED Final Result from Last 3 Months or Most Recently Relevant to Health Maintenance Insurance [facility] Care Teams Seal Extrusion Operator Relationship Specialty Start Date End Date Lianne Dinero MD [address] [place] [phone] PCP - General INTERNAL MEDICINE 10/24/20 Khalif Chavez MD [address] [facility] [address] [address] Physician INTERVENTIONAL CARDIOLOGY 12/03/24
--- OUTSIDE RECORDS SUMMARY | 2025-06-17 09:16 | XMS_ITS | Clinical Summary ---
Author Organization [facility] Address [address] [place] [address] Care Team Providers Care Car Dumper Operator Helper Name Role Phone Elian Souza MD Unavailable Source Comments [facility],non-owned Affiliates and Associated Physician Practices is amultiple site organization consisting of ambulatory clinics and hospital sitesin [place], [place], [place] and [place]. This disclosure is being madepursuant to the Care Everywhere program and may not contain all information available regarding this patient. Last updated 18.[facility] Allergies No known active allergies Medications * [...] every 6 hours as needed. Called to [facility] [phone] 50 Tab 1 12/02/19 14 Active celecoxib (CELEBREX) 200 MG capsule Take 1 Cap by mouth 2 times daily. Called to [facility] [phone] 60 Cap 0 12/03/19 14 Active amoxicillin (AMOXIL) 500 MG capsule TAKE FOUR CAPSULES 1 HOUR BEFORE DENTAL APPOINTMENT 12 Cap 0 12/02/19 15 Active Active Problems Problem Noted Date Diagnosed Date Knee joint replacement by other means 12/21/2013 Osteoarthrosis involving lower leg 08/24/2013 Overview (12/23/2015): 2015 IMO Updt Encounters Date Type Department Care Team Description 05/18/2025 Lab Requisition [facility] - DermPath Lab [address] [place] [address] Felipa Cruz MD from Last 3 Months Social History Tobacco Use Types Packs/Day Years [...] Comments Blood Pressure 136/84 12/02/2013 9:55 AM [facility] Pulse 83 12/02/2013 9:55 AM [facility] Temperature 36.2 C (97.2 F) 12/02/2013 9:55 AM [facility] Respiratory Rate 16 12/02/2013 9:55 AM [facility] Oxygen Saturation 98% 12/02/2013 9:55 AM [facility] Inhaled Oxygen Concentration - - Weight 95.9 kg (211 lb 6.7 oz) 11/29/2013 9:12 A M [facility] Height 175.3 cm (5' 9) 11/29/2013 9:12 AM [facility] Body Mass Index 31.22 11/29/2013 9:12 AM [facility] Plan of Treatment Health Maintenance Due Date Last Done Comments DTAP/TDAP/TD VACCINES (1 - Tdap) 1962 PNEUMOCOCCAL VACCINE 50+ (1 of 2 - PCV) 1962 ZOSTER VACCINE (1 of 2) 1993 Respiratory Syncytial Virus (RSV) Vaccine Pt: or over 60 yrs (1 - 1-dose 75+ series) 2018 DEPRESSION SCREENING 09/29/2024 MEDICARE AWV CALENDAR YEAR 2024 COVID-19 VACCINE (1 - 2023-2 5 season) 2025 INFLUENZA VACCINE (#1) 2025 HEPATITIS B VACCINE Aged Out No [...] this topic Medical Devices Implanted Type Area Dramatic Teacher Device Identifier Shelf Expiration Date Model / Serial / Lot Carmelo Bone Sperry Hv Implanted:Qty: 1 on 11/29/2013 by Elian Souza MD at [facility] Right: [employer] 06/28/2015 [id number] / / [id number] Ty Tibial I Beam Fix Bar 83mm Implanted:Qty: 1 on 11/29/2013 by Elian Souza MD at [facility] Right: [employer] 04/28/2023 [id number] / / [id number] Ins Kn Vangurd Fem Cocr R-Intlok 70mm Implanted:Qty: 1 on 11/29/2013 by Elian Souza MD at [facility] Right: [employer] 08/28/2023 [id number] / / [id number] Butn Pat Arcom Wire Polyeth Sm 31 X 8mm Implanted:Qty: 1 on 11/29/2013 by Elian Souza MD at [facility] Right: [employer] 09/28/2018 [id number] / / [id number] Implt Brdg Tib Ant Stblzd 10mm X 83mm Implanted:Qty: 1 on 11/29/2013 by Elian Souza MD at [facility] Right: [employer] 07/29/2017 [id number] / / [id number] Procedures Procedure Name Priority Date/Time Associated Diagnosis Comments DERMATOPATHOLOGY Routine 05/18/2025 8:21 AM CDT from Last 3 Months Results * DERMATOPATHOLOGY (05/18/2025 8:21 AM CDT) Case Report Dermatopathology Report Case: [id number] Authorizing Provider: Felipa Cruz MD Collected: 05/18/2025 08:21 AM Ordering Location: [facility] - Received: 05/19/2025 09:06 AM DermPath Lab Pathologist: Christine Dillard MD Specimen: Skin, right forearm 12:53 PM CDT DERMATOPATHOLOGY LABORATORY Final Diagnosis Specimen A. SKIN, right forearm: SQUAMOUS CELL CARCINOMA, WELL DIFFERENTIATED (C44.622) OVERLYING CUTANEOUS HORN (L85.8) 12:53 PM CDT DERMATOPATHOLOGY LABORATORY at 1253 CDT Clinical History Cutaneous Horn vs SCC vs Other 12:53 PM CDT DERMATOPATHOLOGY LABORATORY Gross Description Specimen A: Received is one formalin filled container labeled with the patient's name and designated right forearm. The specimen consists of a shave biopsy measuring 9x7x2 mm. Jar 0. 12:53 PM CDT DERMATOPATHOLOGY LABORATORY Microscopic Description Specimen A. SKIN, right forearm: Arising in the epidermis and extending into the dermis there are irregularly shaped aggregates of keratinocytes showing evidence of premature cornification. There is a column of marked compact hyperkeratosis. 12:53 PM CDT DERMATOPATHOLOGY LABORATORY Disclaimer An external and internal positive and negative controls are appropriate for the histochemical, immunohistochemical and immunofluorescence stain(s) in this case (if any), except where stated explicitly. The performance characteristics of the stain(s) cited in this report were developed and its performance characteristic determined by the Dermatopathology Laboratory at [facility], directed by Dr. Sandra Canela. These tests need not be, and therefore are not, approved by the [place] Food and Drug Administration. The tests are used for clinical purposes. Billing Codes Specimen Charges Stain Charges 44328 1 12:53 PM CDT DERMATOPATHOLOGY LABORATORY Embedded Images 12:53 PM CDT DERMATOPATHOLOGY LABORATORY Pathology/Cytolo gy TISSUE SPECIMEN FROM SKIN / Unknown 05/18/2025 8:21 AM CDT 05/19/2025 9:06 AM CDT Felipa Cruz MD LAB - PATHOLOGY/CYTOLOGY OR DERABLES Final Result DERMATOPATHOLOGY LABORATORY [facility] - Department of Dermatology [facility] [address], [address] [place] [address], [facility] [phone] from Last 3 Months Insurance MEDICARE [facility] U[employer] MANAGED MEDICARE ADV [facility] MANAGED MEDICARE ADV MEDICARE SELF PAY NO INSURANCE Member Subscriber Plan / Payer (Ef fective for All Dates) Name:Christopher Hogue Member ID:Not on file Relation to Subscriber:Not on file Name:CHRISTOPHER HOGUE Subscriber ID:Not on file (Home) Address: [address] [place] [address] Payer ID:Not on file Group ID:Not on file Type:Self Pay Address: [facility] MANAGED MEDICARE ADV SELF PAY NO INSURANCE Member Subscriber Plan / Payer (Ef fective for All Dates) Name:AmberChristopher pardo Member ID:Not on file Relation to Subscriber:Not on file Name:AMBERCHRISTOPHER Subscriber ID:Not on file (Home) Address: [address] [place] [address] Payer ID:Not on file Group ID:Not on file Type:Self Pay Address: [facility] MANAGED MEDICARE ADV SELF PAY NO INSURANCE Member Subscriber Plan / Payer (Ef fective for All Dates) Name:Amber Christopher Member ID:Not on file Relation to Subscriber:Not on file Name:AMBERCHRISTOPHER PARDO Subscriber ID:Not on file (Home) Address: [address] [place] [address] Payer ID:Not on file Group ID:Not on file Type:Self Pay Address: [facility] MANAGED MEDICARE ADV Advance Directives * Full Code (Latest Code Status on File) Date Activated Date Inactivated Comments 11/29/2013 3:57 PM 12/02/2013 11:37 AM Care Teams Car Dumper Operator Helper Relationship Specialty [place] [address] [place] [address] [phone] Orthopedic Surgery 08/24/13
--- OUTSIDE RECORDS SUMMARY | 2025-06-17 09:16 | XMS_ITS | Encounter Summary ---
Author Organization [facility] Address [address] [place] [address] Care Team Providers Care Grants Assistant Name Role Phone Elian Souza MD Unavailable Encounter Details Date Type Department Care Team (Late st Contact Info) Description 05/18/2025 Lab Requisition [facility] - DermPath Lab [address] [facility] [place] [address] Felipa Cruz MD [address] [facility] [address] [place] [address] Social History Tobacco Use Types Packs/Day Years [...] No 12/02/2013 10:07 AM Minerva Finn RN * Is person blind or have serious difficulty seeing? Answer Date of Assessment Author No 12/02/2013 10:07 AM Minerva Finn RN * Does person have serious difficulty walking/climbing stairs? Answer Date of Assessment Author No 12/02/2013 10:07 AM Minerva Finn RN * Does person have difficulty dressing/bathing? Answer Date of Assessment Author No 12/02/2013 10:07 AM Minerva Finn RN * Does person have difficulty doing errands alone? Answer Date of Assessment Author No 12/02/2013 10:07 AM Minerva Finn RN documented as of this encounter Mental Status * Does person have difficulty concentrating/remembering/making decisions? Answer Entry Date Author No 12/02/2013 10:07 AM Minerva Finn RN documented in this encounter Plan of Treatment Not on file documented as of this encounter Procedures Procedure Name Priority Date/Time Associated Diagnosis Comments DERMATOPATHOLOGY Routine 05/18/2025 8:21 AM CDT documented in this encounter Results * DERMATOPATHOLOGY (05/18/2025 8:21 AM CDT) Case Report Dermatopathology Report Case: [id number] Authorizing Provider: Felipa Cruz MD Collected: 05/18/2025 08:21 AM Ordering Location: [facility] - Received: 05/19/2025 09:06 AM [...] characteristic determined by the Dermatopathology Laboratory at [facility], directed by Dr. Sandra Canela. These tests need not be, and therefore are not, approved by the [place] Food and Drug Administration. The tests are used for clinical purposes. Billing Codes Specimen Charges Stain Charges 77129 1 5 12:53 PM CDT DERMATOPATHOLOGY LABORATORY Embedded Images 5 12:53 PM CDT DERMATOPATHOLOGY LABORATORY Pathology/Cytolo gy TISSUE SPECIMEN FROM SKIN / Unknown 05/18/2025 8:21 AM CDT 05/19/2025 9:06 AM CDT Felipa Cruz MD LAB - PATHOLOGY/CYTOLOGY OR DERABLES Final Result DERMATOPATHOLOGY LABORATORY [facility] - Department of Dermatology [facility] Medicine [address] [place] [address], [address] [phone] documented in this encounter Visit Diagnoses Not on filedocumented in this encounter Care Teams Grants Assistant Relationship Specialty [place] [address] [place] [address] Orthopedic Surgery 08/24/13 documented as of this encounter
[2025-06-17 09:25] VITALS: BP 130/70; PULSE 68; RESP 14; TEMP 36.7; O2SAT 98; BMI 29.7
[2025-06-17] MEDS: ZOLEDRONIC ACID 5 MG/100 ML 100 ML 400 MG IVPB (09:30)
[2025-06-17 09:55] VITALS: BP 129/76
--- NOTE | 2025-06-17 09:55 | PC.NURSE ---
Tolerated Reclast infusion well. SEE MAR/patient care notes.
== END 2025-06-17 09:11 | disposition home or self-care (01) ==
PROVIDERS: PCP Internal Medicine; Visit Provider Internal Medicine
DX: M81.0 Age-related osteoporosis without current pathological fracture (principal)
CPT/HCPCS: 96374; J3489